=== PATIENT | female | born 1960 | race African-American/Black ===

== ENCOUNTER 2017-03-21 18:54 | Inpatient (IN) | payer OTHER ==
[~2017-03-21] VITALS: Ht 167.6 cm; Wt 50.3 kg
[2017-03-21 20:56] LABS: PLATELET COUNT 388 x10^3mcL (130-400)
[2017-03-21 21:07] LABS: ALKALINE PHOSPHATASE 53 U/L (46-116); ALT/SGPT 14 U/L (14-59); AST/SGOT 18 U/L (15-37); BILIRUBIN TOTAL 0.6 mg/dL (0.20-1.00); CALCIUM 9.2 mg/dL (8.5-10.1); CARBON DIOXIDE 33.3 mmol/L (21-32); CHLORIDE SERUM 89 mmol/L (98-107); CREATININE SERUM 0.9 mg/dL (0.6-1.0); GFR1 > 60 mL/min; GLUCOSE SERUM 111 mg/dL (74-106); SODIUM SERUM 129 mmol/L (136-145)
[2017-03-21 21:11] LABS: ALBUMIN 3.2 g/dL (3.4-5.0)
[2017-03-21 21:15] LABS: RED CELL DISTRIBUTION WIDTH 15.3 % (11.5-14.5)
[2017-03-21 21:24] LABS: CK-MB 1.6 ng/mL (0-3.6)
[2017-03-21 21:28] LABS: BAND NEUTROPHIL 0 % (0-10); BASOPHIL 0 % (0-2); MONOCYTE 6 % (0-7); SEGMENTED NEUTROPHILS 64 % (37-75)
[2017-03-21 21:29] LABS: rbc morphology (normal/abnorm) NORMAL (NORMAL)
[2017-03-21 22:08] LABS: POTASSIUM SERUM 2.9 mmol/L (3.5-5.1)
[2017-03-21 23:08] LABS: microscopic required? YES; urine erythrocyte TRACE (NEGATIVE)
[2017-03-21 23:38] VITALS: BP 105/65
[2017-03-22 00:23] LABS: CHOLESTEROL/HDL RATIO 4.7; MAGNESIUM 2.3 mg/dL (1.8-2.4); PHOSPHOROUS 3.9 mg/dL (2.5-4.9)
[2017-03-22 00:24] LABS: T3 TOTAL 0.81 ng/mL
[2017-03-22 00:30] LABS: FREE T4 1.33 ng/dL (0.76-1.46); FREE THYROXINE INDEX 3.4 ug/dL (1.4-4.5); T4(THYROXINE) 10.1 ug/dL (4.7-13.3)
[2017-03-22 05:15] VITALS: BP 103/70
[2017-03-22 06:38] LABS: CALCIUM 8.3 mg/dL (8.5-10.1); CHLORIDE SERUM 96 mmol/L (98-107); CREATININE SERUM 0.8 mg/dL (0.6-1.0); GFR1 > 60 mL/min; GLUCOSE SERUM 84 mg/dL (74-106); MAGNESIUM 2.1 mg/dL (1.8-2.4); POTASSIUM SERUM 3.8 mmol/L (3.5-5.1); SODIUM SERUM 132 mmol/L (136-145); URIC ACID 4.1 mg/dL (2.6-6.0)
[2017-03-22 06:58] LABS: PLATELET COUNT 360 x10^3mcL (130-400)
[2017-03-22 07:06] LABS: RED CELL DISTRIBUTION WIDTH 15.4 % (11.5-14.5)
[2017-03-22 10:39] VITALS: BP 102/64
[2017-03-22 11:30] LABS: BAND NEUTROPHIL 1 % (0-10); BASOPHIL 0 % (0-2); MONOCYTE 4 % (0-7); PLATELET MORPHOLOGY PLATELETS NORMAL; SEGMENTED NEUTROPHILS 57 % (37-75); rbc morphology (normal/abnorm) ABNORMAL (NORMAL); target cell (codocyte) 1+
[2017-03-22 14:00] VITALS: BP 106/65
[2017-03-22 15:31] LABS: AMPHETAMINE QUAL UR NONE DETECTED (NEG <=1000)
[2017-03-22 18:19] VITALS: BP 112/70
[2017-03-22 22:12] VITALS: BP 117/72
[2017-03-23 06:12] VITALS: BP 128/83
[2017-03-23 06:32] LABS: CALCIUM 8.5 mg/dL (8.5-10.1); CARBON DIOXIDE 27.1 mmol/L (21-32); CHLORIDE SERUM 99 mmol/L (98-107); CREATININE SERUM 0.8 mg/dL (0.6-1.0); GFR1 > 60 mL/min; GLUCOSE SERUM 100 mg/dL (74-106); SODIUM SERUM 132 mmol/L (136-145)
[2017-03-23 10:10] VITALS: BP 90/62
[2017-03-23] MEDS ORDERED: LEXAPRO10 MG PO (14:04)
[2017-03-23] MEDS ORDERED: LORAZEPAM0.5 MG PO (14:06)
[2017-03-23] MEDS ORDERED: REGLAN5 M1 PO (14:21)
[2017-03-23 14:45] VITALS: BP 90/62
[2017-03-23] MEDS ORDERED: MAC100 PO (15:23)
[2017-03-23] MEDS ORDERED: PROBIOTIC1 EAC1 PO (15:23)
== END 2017-03-23 16:14 | disposition home or self-care (01) | DRG 422 ==
LOC: ED 18:54 → DU 22:47 → MU 03-23 09:44
PROVIDERS: Emergency Medicine; Family Medicine; ADMIT Family Medicine
DX: E86.0 Dehydration (principal); N17.0 Acute kidney failure with tubular necrosis; E43 Unspecified severe protein-calorie malnutrition; E87.1 Hypo-osmolality and hyponatremia; E87.6 Hypokalemia; I10 Essential (primary) hypertension; M62.50 Muscle wasting and atrophy, not elsewhere classified, unspecified site; D57.3 Sickle-cell trait; F41.1 Generalized anxiety disorder; E78.5 Hyperlipidemia, unspecified; E03.9 Hypothyroidism, unspecified; F32.9 Major depressive disorder, single episode, unspecified; Z68.1 Body mass index [BMI] 19.9 or less, adult
CPT/HCPCS: 82962; 83880; 84439; 97530-GP; J0696; J1885; J2270; J2405; J2765; J3480; J7030; J7040; J8597; Q0092

== ENCOUNTER 2017-03-26 20:09 | Inpatient (IN) | payer OTHER ==
[~2017-03-26] VITALS: Ht 170.2 cm; Wt 53.7 kg
[~2017-03-26 20:09] MED LIST: LEXAPRO10 MG PO; LORAZEPAM0.5 MG PO; MAC100 PO; PROBIOTIC1 EAC1 PO; REGLAN5 M1 PO
--- NOTE | 2017-03-26 20:52 | NUR ---
PT PRESENTS TO ED WITH C/C ABD PAIN AND CP X 2 WEEKS. PT STATES THAT SHE HAS EPIGASTRIC PAIN 07/05 AND "KNOTTING" IN QUALITY PT RPEROTS OVER 20 EPISODES OF EMESIS , REPROTS NAUSEA, DENIES DIARRHEA, AND REPROTS CONSITPATION X 2 WEEKS. PT STATES THAT SHE IS UNABLE TO HOLD ANYTHING INCLUDING WATER DOWN. PT RPEROTS THAT SHE HAS BEEN HAVING SYNCOPAL EPISODES THE LAST EPISODE BEING ON TUESDAY. PT DENIES ANY DIZZINESS AT THIS CURRENT TIME BUT STATES SHE IS DIZZY IF SHE STANDS UP OR WALKS. PT ALSO REPROTS STERNAL C0 04/04 SINCE [address] [place] IN QUALITY RADIATES TO BOTH SIDES OF THE JAW.PT REPROTS FEELING PALPITATIONS. PT DENIES SOB. PT STABLE. AA&0X4. RESP E/U AND SPEAKING IN FULL CELAR SENTENCES. NAD. WILL CONTINUE TO MONITOR.
[2017-03-26 21:19] LABS: CALCIUM 9.2 mg/dL (8.5-10.1); CARBON DIOXIDE 32.5 mmol/L (21-32); CREATININE SERUM 1.1 mg/dL (0.6-1.0); POTASSIUM SERUM 4.1 mmol/L (3.5-5.1)
[2017-03-26 21:21] LABS: ALBUMIN 3.3 g/dL (3.4-5.0); BILIRUBIN TOTAL 0.77 mg/dL (0.20-1.00); TOTAL PROTEIN, SERUM 6.7 g/dL (6.4-8.2)
[2017-03-26 21:30] LABS: PLATELET COUNT 376 x10^3mcL (130-400)
[2017-03-26 21:33] LABS: RED CELL DISTRIBUTION WIDTH 15.5 % (11.5-14.5)
[2017-03-26 22:21] LABS: BAND NEUTROPHIL 1 % (0-10); SEGMENTED NEUTROPHILS 72 % (37-75)
[2017-03-26 22:22] LABS: MONOCYTE 4 % (0-7); PLATELET MORPHOLOGY PLATELETS NORMAL
[2017-03-26 22:23] LABS: rbc morphology (normal/abnorm) NORMAL (NORMAL)
--- NOTE | 2017-03-26 22:46 | NUR ---
PT AMBULATED TO BATHROOM WITH STEADY GAIT.
--- NOTE | 2017-03-26 22:54 | NUR ---
PT REPROTS PAIN IS NOW 0/10 AFTER BEING MEDICATED PER MD ORDERS.
--- NOTE | 2017-03-27 01:39 | NUR ---
SAW ON THE MONITOR THAT PT WAS HYPOTENSIVE. ENTERED PT ROOM TO RECHECK VITALS. FOUND PT OUT OF BED AND SITTING IN CHAIR. PT STATES THAT SHE WAS FEELING ANXIOUS IN BED AND FELT BETTER IN THE CHAIR. RECHECKED BP, STILL HYPOTENSIVE. ASSISTED PT BACK INTO BED LAYING DOWN AND RECHECKED BP AND BP RETURNED TO NORMAL. SEE DOCUMENTED VITALS. MD MADE AWARE OF HYPOTENSION. PT DENIES ANY DIZZIESS. PT STABLE. NAD. CALL LIGHT IWHIN REACH. WILL CONTINUE TO MONITOR.
[2017-03-27] MEDS ORDERED: ESCITALOPRAM10 M1 PO (02:15)
[2017-03-27 03:06] LABS: MAGNESIUM 2.3 mg/dL (1.8-2.4); PHOSPHOROUS 4.3 mg/dL (2.5-4.9)
[2017-03-27 03:07] LABS: CHOLESTEROL/HDL RATIO 4.8
[2017-03-27 03:33] LABS: UA SPECIFIC GRAVITY 1.015 (1.005-1.035); microscopic required? YES; urine erythrocyte TRACE (NEGATIVE)
[2017-03-27 03:39] LABS: AMPHETAMINE QUAL UR NONE DETECTED (NEG <=1000)
[2017-03-27 03:43] LABS: T3 TOTAL 0.61 ng/mL
[2017-03-27 03:46] LABS: FREE T4 1.35 ng/dL (0.76-1.46); FREE THYROXINE INDEX 3.7 ug/dL (1.4-4.5); T4(THYROXINE) 10.2 ug/dL (4.7-13.3)
--- NOTE | 2017-03-27 03:52 | NUR ---
CALLED DR CANTU. PT REQUESTED TO HAVE ATIVAN ORDER CHANGED TO XANAX. PT STATES THAT ATIVAN MAKES HER SICK AND CAUSES HER TO VOMIT. MADE AWARE.
--- NOTE | 2017-03-27 03:53 | NUR ---
PT STABLE. LAYING IN L LATERAL POSITION. RESP E/U. CHEST RISE AND FALL VISIBLE. PT SLEEPING AT THIS CURRENT TIME. PT STABLE. NAD. CALL LIGHT WITHIN REACH [facility].
--- NOTE | 2017-03-27 05:53 | NUR ---
PT STILL SLEEPING CHEST RISE AND FALL VISIBLE. PT STABLE. NAD. WILL CONTINUE TO MONTIOR.
--- NOTE | 2017-03-27 07:15 | NUR ---
GAVE REPROT TO GUADALUPE LOWERYT O MAC CAR EOF PT.
--- NOTE | 2017-03-27 07:30 | NUR ---
PT ASSISTED TO RESTROOM AND AMBULATED BACK WITH STEADY GAIT TO TREATMENT AREA, PT IN A POSITION OF COMFORT WITH HOB ELEVATED PER REQUEST, PT REPORTS PAIN LOWERED TO 5/10 AT THIS TIME, PT TEXTING ON PERSONAL CELL PHONE, IVF CURRENTLY INFUSING AT THIS TIME, RESP EVEN AND UNLABORED, PT IN NO ACUTE DISTRESS, CALL LIGHT WITHIN REACH, WILL CONTINUE TO MONITOR
--- NOTE | 2017-03-27 07:39 | NUR ---
LAB AT BEDSIDE FOR BLOOD DRAW AT THIS TIME
--- NOTE | 2017-03-27 07:49 | NUR ---
REPORT GIVEN TO BEVERLEY MONROE TELE FLOOR TO ASSUME CARE OF PT AFTER TRANSPORT
--- NOTE | 2017-03-27 08:11 | NUR ---
PT EVALUATED BY DR. WALKER
[2017-03-27 09:49] VITALS: BP 114/69
--- NOTE | 2017-03-27 10:00 | NUR ---
RECIEVED PT FROM ED VIA GURNEY. ALERT AND ORIENTED, NO DISTRESS NOTED. TELE #41,NSR WITH BBB AND PVC'S, HR 70. PULSES ARE STRONG AND EQUAL. LUNG SOUNDS ARE CLEAR BILATERALLY. BOWEL SOUNDS ARE ACTIVE, REPORTED PAIN TO PALPATION, REPORTED SHE HAS NOT EATEN SINCE LAST WEEK, NAUSEA IS INTERMITTENT, NO NAUSEA AT THIS TIME. SKIN DRY AND INTACT. REPORTED A FALL LAST SATURDAY 03/24 DUE TO DIZZINES. PT REPORTED EPIGASTRIC PAIN 04/04 NAD HAS HAD PAIN FOR LAST 3 MONTHS CONSISTANTLY. IV CLEAR AND INTACT. PT REPORTED SUICIDE ATTEMPT 03/26/17, ATTEMPTED TO RUN INTO TRAFFIC BUT SON STOPPED HER, SHE HAS NO PLAN FOR SUICIDE AT THIS TIME.
--- NOTE | 2017-03-27 11:56 | NUR ---
LTD 2-D ECHOCARDIOGRAM COMPLETED
--- NOTE | 2017-03-27 12:00 | NUR ---
BLOOD GLUCOSE 65, GIVEN APPLE JUICE WITH SUGAR PACKET, TOLERATED WELL.
--- NOTE | 2017-03-27 12:24 | NUR ---
SPOKE TO DR. BETHEA. INFORMED HIM OF CARDIAC RYTHM NSR HAS BBB AND PVC'S, POSITIVE UA FOR LEUKOCYTES, BLOOD SUGAR OF 65 AND POSSIBLY SWITCHING TO D5NS WHILE NPO. ALSO INFORMED OF ATTEMPTED SUICIDE ON 03/26/17.
[2017-03-27 13:31] VITALS: BP 110/75
--- NOTE | 2017-03-27 13:35 | NUR ---
REPEAT BLOOD SUGAR 70. INITIATED D5NS AT 100ML/HR PER DR ORDER. PATIENT NAUSEAS, ZOFRAN GIVEN. WILL CONT TO MONITOR.
--- NOTE | 2017-03-27 14:38 | NUR ---
PER TOUCH UP CARVER, TELE BOX REPLACED TO #40. NOTED.
--- NOTE | 2017-03-27 16:30 | NUR ---
PT REPORTED PAIN 8/10 IN ABDOMEN, GIVEN IVP MORPHINE.
[2017-03-27 17:18] VITALS: BP 122/77
--- NOTE | 2017-03-27 18:45 | NUR ---
RENATO DUQUE CAME BY, PER DOCTOR PT MEETS CRITERIA FOR 5150 DANGER TO SELF. CHARGE NURSE MADE AWARE, SITTER AT BED SIDE. PT RESTING WITH EYES CLOSED NO SIGN OF DISTRESS. NO SIGNIFICANT CHANGE IN CONDITION. WILL CONTINUE TO MONITOR AND ENDORE TO NIGHT NURSE.
--- NOTE | 2017-03-27 20:10 | NUR ---
PT ALERT AND AWAKE. AOX4. VERBAL WITH CLEAR SPEECH. SITTER AT BEDSIDE. NO S/S OF RESPIRATORY DISTRESS NOTED. LUNGS CLEAR BILATERALLY. DENIES ANY CHEST PAIN. ON TELE 40, SR WITH PAC'S. BOWEL SOUNDS PRESENT. ABD SOFT AND FLAT. SKIN WARM AND DRY. IV NS INFUSING WELL TO LEFT AC. IV PATENT AND INTACT. NO S/S OF INFECTION NOTED. NO EDEMA NOTED. PULSES PALPABLE. SCDS IN PLACE. PT STATES 5/10 EPIGASTRIC PAIN. PT C/O FEELING ANXIOUS. DENIES ANY SUICIDAL IDEATION AT THIS TIME. PRN XANAX 0.25 MG PO GIVEN. CALL LIGHT WITHIN REACH. WILL CONTINUE TO MONITOR.
[2017-03-27 21:30] VITALS: BP 101/63
[2017-03-27 22:34] VITALS: Ht 170.2 cm; Wt 53.7 kg
--- NOTE | 2017-03-28 00:16 | NUR ---
PT RESTING IN BED WITH EYES CLOSED. BREATHING EQUAL AND UNLABORED. NO S/S OF RESPIRATORY DISTRESS NOTED. IV PATENT AND INFUSING WELL. NO S/S OF DISTRESS NOTED. RESTING WITH RELAXED FACIAL FEATURES. SITTER REMAINS AT BEDSIDE. CALL LIGHT WITHIN REACH. WILL CONTINUE TO MONITOR.
--- NOTE | 2017-03-28 03:20 | NUR ---
DR. CANTU UPDATED AND AWARE OF PT'S LOW NA 130 AND UA POSITIVE FOR MANY BACTERIA. AWAITING NEW ORDERS.
--- NOTE | 2017-03-28 05:28 | NUR ---
PT SLEPT WELL THROUGH THE NIGHT. CURRENTLY ALERT AND AWAKE. PRN XANAX 0.25 MG GIVEN FOR ANXIETY. NO S/S OF RESPIRATORY DISTRESS NOTED. BREATHING EQUAL AND UNLABORED. REMAINS NPO FOR EGD PROCEDURE. IV PATENT AND INFUSING WELL. NO ADVERSE REACTIONS NOTED FROM IV ROCEPHIN. NO S/S OF DISTRESS NOTED. CALL LIGHT WITHIN REACH. SITTER AT BEDSIDE. WILL CONTINUE MONITOR.
[2017-03-28 05:47] VITALS: BP 94/60
--- NOTE | 2017-03-28 06:40 | NUR ---
TELE MONITOR DISCONTINUED PER MD ORDER; RETURNED TO INDUSTRIAL DESIGN INTERN.
--- NOTE | 2017-03-28 08:30 | NUR ---
SEEN BY THE INTERNS AND RESIDENT AND PLAN FO CARE DISCUSSED.
--- NOTE | 2017-03-28 08:39 | NUR ---
PATIENT FOR EGD THIS AM. NOTED SEVERAL MEDICATIONS GIVEN INCLUDING SYNTHROID, XANAX, AND NORCO. PATIENT COMPLETED THE CHECKLIST OF VITALS, HEIGHT, WEIGHT, CONTACT, TEACHING AND BLOOD SUGAR ADDED. PATIENT WAS SEEN BY THE INTERNS AND RESIDENT AND PLAN OF CARE DISCUSSED. JOANIE AQUINOT DIMINISHED BREATHS SOUNDS AND WITH HER UNDERWEAR, EARRINGS AND A NECKLACE ON AND ASKED TO REMOVE FOR THE PROCEDURE AND WHY. PATIENT IS COMPLIANT AND PATIENT HAD REPORT GIVEN BY THE LOGGER AND DOWN FOR PROCEDURE AT THIS TIME. PATIENT WITH BOWEL SOUNDS ACTIVE AND IS VERY LEAN. PATIENT WITH SITTER AT BEDSIDE AT THIS TIME DUE TO 5150 DUE TO THREATENED TO KILL SELF. PATIENT IS AMBULATORY AND WITH PAIN TO THE BACK AND NOT ABLE TO TOLERATE FOOD AND DRINK OR MAINTAIN WEIGHT. PULSES PALPABLE AND STRONG. PATIENT HAS HISTORY OF CARRYING THE SICKLE CELL TRAIT AND WITH ANXIETY. AND TUBAL LIQATION. PATIENT HAD NAUSEA AND VOMTIING THAT BROUGHT HER TO THE EMERGENCY WITH EPIGASTRIC PAIN TIMES TWO WEEKS. PATIENT AHS RECEIVED ROCEPHIN AND ZOFRAN AND DOES NOT APPEAR IN ANY PAIN AT TIME OF TRANSFER. AWAITING ARRIVAL BACK TO THE FLOOR POST PROCEDURE. VITALS AT THIS TIME AT 94/60, 16, 68, 96.9, 98% ON ROOM AIR. NOTED LABS ARE NA AT 130, CHLORIDE AT 91, BUN AT 20.0, CRATIINES AT 1.1, PHEON AT 4.[address] SHOWS TRACE PERICARDIO EFFUSION AND A LEASON TO THE RIGHT HEPATIC LOBE.
--- NOTE | 2017-03-28 09:52 | NUR ---
RECEIVED POST PROCEDURE AND PATIENT HAS ESOPHAGITIS AND GASTRITITIS BOTH ERROSIVE. PATIENT IS REQUESTING FOOD. NO ORDERS YET NOTED. PATIENT TOLERATED TRANSFER WELL.
[2017-03-28 09:55] VITALS: BP 77/44
--- NOTE | 2017-03-28 10:22 | NUR ---
Consent for records retreaved. staff faxed and awaiting results to be sent.
--- NOTE | 2017-03-28 10:24 | NUR ---
PATEITN REQUEING FOOD AND FLUIDS. NO ORDERS YET RECEIVED.
--- NOTE | 2017-03-28 12:04 | NUR ---
LASER ENGRAVER ADVISED THE PATIENT WANTS TO SPEAK WITH HIM. ADVISED TIMES THREE ON THE FINDINGS OF THE EGD. PATIENT GIVEN MEDICATIONS ORDERED AND DIET TO BE ORDERED. PATIENT DENIES ANY ACUTE PAIN AT THIS TIME.
--- NOTE | 2017-03-28 14:02 | NUR ---
PLAN FOR US OF THE ABDOMEN LATER TODAY AT 8PM. PATIENT IS NPO AFTER LUNCH NOWL. GAVE THE PRILOSEC AND THE REGLAN ORDERED. PATIENT STATES STILL WITH SOME PAIN BUT NOT INTENSE PRIOR. WILL CONTINUE TO MONITOR AND SITTER AT BEDSIDE FOR 5150 DIAGNOSIS. DENIES WANTING TO KILL SELF AT THIS TIME. FOR PSYCH EVAL TODAY.
--- NOTE | 2017-03-28 16:29 | NUR ---
GLENDA TO BE SEEN BY THE PSYCH DOCOTOR FOR HX OF DEPRESSION AND SUICIDAL IDEATION. PATIENT HAS A SITTER AT BEDSIDE AND HAS BEEN COOPEATIVE WITH CARE.
--- NOTE | 2017-03-28 17:42 | NUR ---
SEEN BY THE PSYCHOLOGIST AND STILL WITH 5150. PATIENT HAS BEEN PLEASANT AND COOPERATIVE WITH CARE. SHE HAS NOT INDICATED ANY IDEATION TO THE NURING STAFF BUT HAS INDICATED TO THE PSYCHOLOGIST. CONTINUED PRESENT PLAN OF CARE.
--- NOTE | 2017-03-28 19:40 | NUR ---
PT ALERT/ORIENTED X4. PT ON 7481. SITTER IN ROOM. PT EXPRESSING SUICIDIAL IDEATIONS; STATED SHE WANTED TO TAKE "PILLS" AND ALSO STATED WANTED TO "RUN OUT IN FRONT OF A TRUCK". PT ASSESSED; SEE NSG FLOWSHEET. SAFETY REINFORCED; SEE EDUCAT SHEET. WILL CONTINUE TO MONITOR. PT C/O ABD PAIN, WILL MEDICATE PER MD PRN ORDER. PT ALSO C/O NAUSEA; WILL MEDICATE WITH ZOFRAN.
[2017-03-28 19:46] VITALS: BP 99/56
--- NOTE | 2017-03-28 21:45 | NUR ---
PT NO C/O ABD OR NAUSEA AT THIS TIME. PT WAS MEDICATED WITH NORCO AT 1958 (SEE EMAR). PT WAS ALSO MEDICATED WITH ZOFRAN AT 2003. (SEE EMAR). WILL CONTINUE TO MONITOR.
--- NOTE | 2017-03-29 00:21 | NUR ---
PT SLEEPING. NO DISTRESS NOTED. WILL CONTINUE TO MONITOR.
--- NOTE | 2017-03-29 03:00 | NUR ---
PT SLEEPING. NO DISTRESS NOTED. WILL CONTINUE TO MONITOR.
--- NOTE | 2017-03-29 05:29 | NUR ---
PT SLEPT IN LONG INTERVALS THROUGHOUT THE NIGHT. WILL CONTINUE TO MONITOR.
[2017-03-29 06:05] VITALS: BP 105/62
--- NOTE | 2017-03-29 06:30 | NUR ---
NOTIFIED PRIMARY MURSE THAT Pt WAS REQUESTING TO SHOWER. Pt MADE AWARE THAT A DOCTOR'S ORDER WAS NEEDED. THE PATIENT ENTERED THE RESTROOM AND SHOWERED ANYWAY, TOLERATING WELL. BACK TO BED, WILL CONTINUE TO MONITOR.
[2017-03-29 06:41] LABS: CALCIUM 7.6 mg/dL (8.5-10.1); CARBON DIOXIDE 24.5 mmol/L (21-32); CHLORIDE SERUM 103 mmol/L (98-107); CREATININE SERUM 0.8 mg/dL (0.6-1.0); GFR1 > 60 mL/min; GLUCOSE SERUM 101 mg/dL (74-106); POTASSIUM SERUM 3.3 mmol/L (3.5-5.1); SODIUM SERUM 135 mmol/L (136-145)
[2017-03-29 07:04] LABS: BASOPHIL % 0.1 % (0-2); PLATELET COUNT 340 x10^3mcL (130-400)
[2017-03-29 07:08] LABS: RED CELL DISTRIBUTION WIDTH 16.1 % (11.5-14.5)
--- NOTE | 2017-03-29 07:15 | NUR ---
RECEIVED PT. IN BED A/A/O X3. PT. STILL C/O ON AND OFF FEELING OF NAUSEA. PT. DENIES ANY PAIN AT THIS TIME. D5NS RUNNING AT 100 CC/HR. VIA IV H/L AT R FA. SCD TO BLE MAINTAINED. DIRECTOR OF PHILANTHROPY AT BEDSIDE TO MAINTAIN PT. SAFETY. BED IN LOW POS., CALL LIGHT WITHIN REACH. SIDE RAILS UP X3.
--- NOTE | 2017-03-29 07:50 | NUR ---
C/O FEELING NAUSEATED; ZOFRAN 4MG IV GIVEN.
[2017-03-29 08:05] VITALS: BP 99/64
--- NOTE | 2017-03-29 08:07 | NUR ---
DR. BRUNSON, DO INTERNS, CHARGE NURSE, AND ATTENDING NURSE AT BEDSIDE. CAREPLAN DISCUSSED WITH PT. ALL QUESTIONS ANSWERED.
--- NOTE | 2017-03-29 10:00 | NUR ---
DR. BETHEA (DO BIOLOGICAL AIDE) WAS MADE AWARE THAT PT. REFUSED SOME PO MEDICATIONS TODAY (PLEASE SEE E-MAR). NO FURTHER ORDER RECEIVED AT THIS TIME.
--- NOTE | 2017-03-29 10:40 | NUR ---
C/O FEELING ANXIOUS; XANAX 0.25MG PO GIVEN.
[2017-03-29] MEDS ORDERED: LIPI20 PO ×2 (13:24→14:43)
[2017-03-29] MEDS ORDERED: COL100 PO ×2 (13:27→14:43)
[2017-03-29] MEDS ORDERED: REG5 PO ×2 (13:30→14:43)
[2017-03-29] MEDS ORDERED: SYN25 PO ×2 (13:32→14:46)
[2017-03-29] MEDS ORDERED: MAC100 PO ×2 (13:33→14:43)
[2017-03-29] MEDS ORDERED: LAC PO ×2 (13:34→14:43)
[2017-03-29] MEDS ORDERED: PRI20 PO ×2 (13:35→14:43)
[2017-03-29 17:40] VITALS: BP 105/67
--- NOTE | 2017-03-29 18:00 | NUR ---
D/C HOME INSTRUCTIONS GIVEN TO PT. WITH VERBALIZED UNDERSTANDING. IV H/L TO R FA REMOVED. ALL QUESTIONS ADDRESSED.
--- NOTE | 2017-03-29 18:25 | NUR ---
PT. IS BEING DISCHARGED IN STABLE CONDITION VIA WHEELCHAIR. ALL BELONGINGS SENT HOME WITH PT. UPON DISCHARGE.
== END 2017-03-29 18:22 | disposition home or self-care (01) | DRG 243 ==
LOC: ED 20:09 → DU 03-27 02:15 → MU 03-27 02:15 → DU 03-27 02:15 → MU 03-28 06:20
PROVIDERS: Emergency Medicine; Internal Medicine Gastroenterology; ADMIT Family Medicine
PROC: 0DB78ZX Excision of Stomach, Pylorus, Via Natural or Artificial Opening Endoscopic, Diagnostic (ICD-10-PCS; principal; 2017-03-28 09:00)
DX: K22.10 Ulcer of esophagus without bleeding (principal); N17.0 Acute kidney failure with tubular necrosis; E44.0 Moderate protein-calorie malnutrition; I31.3 Pericardial effusion (noninflammatory); K29.71 Gastritis, unspecified, with bleeding; E83.51 Hypocalcemia; E87.1 Hypo-osmolality and hyponatremia; E86.0 Dehydration; E87.6 Hypokalemia; F32.9 Major depressive disorder, single episode, unspecified; D57.3 Sickle-cell trait; E78.5 Hyperlipidemia, unspecified; M62.50 Muscle wasting and atrophy, not elsewhere classified, unspecified site; R31.9 Hematuria, unspecified; N39.0 Urinary tract infection, site not specified; I11.9 Hypertensive heart disease without heart failure; E02 Subclinical iodine-deficiency hypothyroidism; F45.9 Somatoform disorder, unspecified; Z68.1 Body mass index [BMI] 19.9 or less, adult; T50.905A Adverse effect of unspecified drugs, medicaments and biological substances, initial encounter; Y92.018 Other place in single-family (private) house as the place of occurrence of the external cause
CPT/HCPCS: 43235; 82962; 83880; 84439; J0696; J1200; J1610; J2250; J2270; J2310; J2405; J3010; J3490; J7030; J7042; J8597; Q0092; Q9967

== ENCOUNTER 2017-03-31 23:50 | Emergency (ER) | payer OTHER ==
[~2017-03-31 23:50] MED LIST changes: +COL100 PO; +ESCITALOPRAM10 M1 PO; +LAC PO; +LIPI20 PO; +PRI20 PO; +REG5 PO; +SYN25 PO
[2017-04-01 00:13] VITALS: BP 95/70
== END 2017-04-01 03:50 | disposition left against medical advice (07) ==
LOC: ED 23:50
DX: Z53.21 Procedure and treatment not carried out due to patient leaving prior to being seen by health care provider (principal)

== ENCOUNTER 2017-04-02 20:46 | Emergency (ER) | payer OTHER ==
[~2017-04-02] VITALS: Ht 170.2 cm; Wt 53.5 kg
[2017-04-02 22:38] VITALS: BP 117/57
== END 2017-04-02 22:38 | disposition home or self-care (01) ==
LOC: ED 20:46
DX: R60.0 Localized edema (principal); R63.0 Anorexia; M54.5 Low back pain; Z88.5 Allergy status to narcotic agent

== ENCOUNTER 2017-04-04 20:27 | Emergency (ER) | payer OTHER ==
[2017-04-05 00:10] VITALS: BP 131/90
== END 2017-04-05 02:06 | disposition home or self-care (01) ==
LOC: ED 20:27
DX: R60.0 Localized edema (principal)
CPT/HCPCS: Q0092; Q0162

== ENCOUNTER 2017-04-09 16:56 | Emergency (ER) | payer OTHER ==
[2017-04-09] MEDS ORDERED: PROMETHAZINE25 M3 PO (17:46)
[2017-04-09 18:49] VITALS: BP 123/84
== END 2017-04-09 18:49 | disposition left against medical advice (07) ==
LOC: ED 16:56
DX: R10.13 Epigastric pain (principal); Z88.5 Allergy status to narcotic agent
CPT/HCPCS: Q0162

== ENCOUNTER 2017-05-07 09:16 | Emergency (ER) | payer OTHER ==
[~2017-05-07] VITALS: Ht 170.2 cm; Wt 63.3 kg
[~2017-05-07 09:16] MED LIST changes: +PROMETHAZINE25 M3 PO
[2017-05-07 09:21] VITALS: BP 95/64
== END 2017-05-07 09:55 | disposition home or self-care (01) ==
LOC: ED 09:16
DX: R60.0 Localized edema (principal); Z88.5 Allergy status to narcotic agent; Z88.8 Allergy status to other drugs, medicaments and biological substances

== ENCOUNTER 2017-05-26 06:50 | Emergency (ER) | payer OTHER ==
[2017-05-26 08:30] LABS: CALCIUM 9.4 mg/dL (8.5-10.1); CHLORIDE SERUM 96 mmol/L (98-107); CREATININE SERUM 0.8 mg/dL (0.6-1.0); GFR1 > 60 mL/min; GLUCOSE SERUM 100 mg/dL (74-106); POTASSIUM SERUM 4.5 mmol/L (3.5-5.1); RED CELL DISTRIBUTION WIDTH 16.8 % (11.5-14.5); SODIUM SERUM 130 mmol/L (136-145)
[2017-05-26 08:31] LABS: PLATELET COUNT 508 x10^3mcL (130-400)
[2017-05-26 08:34] LABS: ALBUMIN 3.5 g/dL (3.4-5.0); ALKALINE PHOSPHATASE 47 U/L (46-116); ALT/SGPT 15 U/L (14-59); AST/SGOT 12 U/L (15-37); BILIRUBIN TOTAL 0.6 mg/dL (0.20-1.00); LIPASE 97 IU/L (73-393); TOTAL PROTEIN, SERUM 7.6 g/dL (6.4-8.2)
[2017-05-26 10:14] VITALS: BP 139/38
== END 2017-05-26 10:14 | disposition home or self-care (01) ==
LOC: ED 06:50
PROVIDERS: Emergency Medicine
DX: K59.00 Constipation, unspecified (principal); Z88.5 Allergy status to narcotic agent; Z88.6 Allergy status to analgesic agent
CPT/HCPCS: J2405; J3010

== ENCOUNTER 2017-08-17 10:02 | Emergency (ER) | payer OTHER ==
[~2017-08-17] VITALS: Ht 170.2 cm; Wt 53.5 kg
[2017-08-17 10:47] LABS: PLATELET COUNT 353 x10^3mcL (130-400)
[2017-08-17 10:56] LABS: RED CELL DISTRIBUTION WIDTH 15.6 % (11.5-14.5)
[2017-08-17 11:11] LABS: ALKALINE PHOSPHATASE 58 U/L (46-116); ALT/SGPT 13 U/L (14-59); AST/SGOT 15 U/L (15-37); BILIRUBIN TOTAL 0.3 mg/dL (0.20-1.00); CARBON DIOXIDE 31.4 mmol/L (21-32); CHLORIDE SERUM 101 mmol/L (98-107); CREATININE SERUM 0.7 mg/dL (0.6-1.0); GFR1 > 60 mL/min; GLUCOSE SERUM 129 mg/dL (74-106); LIPASE 65 IU/L (73-393); POTASSIUM SERUM 3.9 mmol/L (3.5-5.1); SODIUM SERUM 136 mmol/L (136-145); TOTAL PROTEIN, SERUM 7.4 g/dL (6.4-8.2)
[2017-08-17 11:13] LABS: ALBUMIN 2.9 g/dL (3.4-5.0)
[2017-08-17 11:32] LABS: BAND NEUTROPHIL 2 % (0-10); BASOPHIL 0 % (0-2); MONOCYTE 8 % (0-7); SEGMENTED NEUTROPHILS 79 % (37-75)
[2017-08-17 11:34] LABS: rbc morphology (normal/abnorm) ABNORMAL (NORMAL)
[2017-08-17 11:35] LABS: burr cell (echinocyte) 1+; ovalocyte/elliptocyte 1+; target cell (codocyte) 1+
[2017-08-17 11:36] LABS: schistocyte (helmet cell) 1+
[2017-08-17 11:37] LABS: CALCIUM 9.3 mg/dL (8.5-10.1)
[2017-08-17 12:24] VITALS: BP 150/90
== END 2017-08-17 12:26 | disposition home or self-care (01) ==
LOC: ED 10:02
PROVIDERS: Emergency Medicine
DX: R42 Dizziness and giddiness (principal); R10.9 Unspecified abdominal pain
CPT/HCPCS: J2405; J7030; J8597; Q0092

== ENCOUNTER 2017-08-21 09:28 | Emergency (ER) | payer OTHER ==
[2017-08-21 10:51] LABS: CALCIUM 9.4 mg/dL (8.5-10.1); CARBON DIOXIDE 31.1 mmol/L (21-32); CREATININE SERUM 1.1 mg/dL (0.6-1.0); POTASSIUM SERUM 4.6 mmol/L (3.5-5.1)
[2017-08-21 10:56] LABS: BILIRUBIN TOTAL 0.64 mg/dL (0.20-1.00); TOTAL PROTEIN, SERUM 7.6 g/dL (6.4-8.2)
[2017-08-21 10:58] LABS: ALBUMIN 3.1 g/dL (3.4-5.0)
[2017-08-21 11:00] LABS: BASOPHIL % 1.1 % (0-2); PLATELET COUNT 395 x10^3mcL (130-400)
[2017-08-21 11:04] LABS: RED CELL DISTRIBUTION WIDTH 15.2 % (11.5-14.5)
[2017-08-21 12:31] LABS: microscopic required? YES; urine erythrocyte TRACE (NEGATIVE)
[2017-08-21 12:46] LABS: AMPHETAMINE QUAL UR NONE DETECTED (NEG <=1000)
[2017-08-21 15:22] VITALS: BP 122/82
== END 2017-08-21 15:22 | disposition home or self-care (01) ==
LOC: ED 09:28
PROVIDERS: Emergency Medicine
DX: D18.09 Hemangioma of other sites (principal); R10.13 Epigastric pain; Z88.5 Allergy status to narcotic agent
CPT/HCPCS: J0696; J1885; J3490; J7030; Q9967

== ENCOUNTER 2017-09-13 13:10 | Emergency (ER) | payer OTHER ==
[~2017-09-13] VITALS: Ht 172.7 cm; Wt 53.5 kg
[2017-09-13 13:42] VITALS: Ht 172.7 cm; Wt 53.5 kg
[2017-09-13 15:24] LABS: PLATELET COUNT 336 x10^3mcL (130-400)
[2017-09-13 15:31] LABS: CALCIUM 9.1 mg/dL (8.5-10.1); CARBON DIOXIDE 29.7 mmol/L (21-32); CHLORIDE SERUM 102 mmol/L (98-107); CREATININE SERUM 0.6 mg/dL (0.6-1.0); GFR1 > 60 mL/min; GLUCOSE SERUM 110 mg/dL (74-106); POTASSIUM SERUM 3.9 mmol/L (3.5-5.1); SODIUM SERUM 140 mmol/L (136-145)
[2017-09-13 15:32] LABS: RED CELL DISTRIBUTION WIDTH 17.1 % (11.5-14.5)
[2017-09-13 15:36] LABS: ALKALINE PHOSPHATASE 53 U/L (46-116); ALT/SGPT 16 U/L (14-59); AMYLASE 46 U/L (25-115); AST/SGOT 14 U/L (15-37); BILIRUBIN TOTAL 0.3 mg/dL (0.20-1.00); LIPASE 74 IU/L (73-393); TOTAL PROTEIN, SERUM 7.3 g/dL (6.4-8.2)
[2017-09-13 15:44] LABS: BAND NEUTROPHIL 1 % (0-10); BASOPHIL 0 % (0-2); MONOCYTE 5 % (0-7); SEGMENTED NEUTROPHILS 76 % (37-75)
[2017-09-13 15:45] LABS: rbc morphology (normal/abnorm) ABNORMAL (NORMAL)
[2017-09-13 16:44] VITALS: BP 156/98
== END 2017-09-13 16:44 | disposition home or self-care (01) ==
LOC: ED 13:10
PROVIDERS: Emergency Medicine
DX: K29.70 Gastritis, unspecified, without bleeding (principal); Z88.5 Allergy status to narcotic agent
CPT/HCPCS: 83880; J0780; J1200; J1885

== ENCOUNTER 2017-10-13 10:16 | Emergency (ER) | payer OTHER ==
[~2017-10-13] VITALS: Ht 170.2 cm; Wt 52.2 kg
[2017-10-13 10:20] VITALS: Ht 170.2 cm; Wt 52.2 kg
[2017-10-13 15:50] VITALS: BP 118/74
== END 2017-10-13 15:50 | disposition home or self-care (01) ==
LOC: ED 10:16
DX: G89.29 Other chronic pain (principal); R10.9 Unspecified abdominal pain; R11.2 Nausea with vomiting, unspecified; Z88.5 Allergy status to narcotic agent
CPT/HCPCS: J1885; J2270; Q0162

== ENCOUNTER 2017-10-17 19:58 | Emergency (ER) | payer OTHER ==
[~2017-10-17] VITALS: Ht 170.2 cm; Wt 53.5 kg
[2017-10-17 20:08] VITALS: Ht 170.2 cm; Wt 53.5 kg
[2017-10-17 21:12] LABS: PLATELET COUNT 398 x10^3mcL (130-400)
[2017-10-17 21:21] LABS: RED CELL DISTRIBUTION WIDTH 16.8 % (11.5-14.5)
[2017-10-17 21:24] LABS: CALCIUM 9.2 mg/dL (8.5-10.1); CREATININE SERUM 1.3 mg/dL (0.6-1.0); POTASSIUM SERUM 3.3 mmol/L (3.5-5.1)
[2017-10-17 21:28] LABS: ALBUMIN 3.5 g/dL (3.4-5.0); BILIRUBIN TOTAL 0.8 mg/dL (0.20-1.00); MAGNESIUM 2.4 mg/dL (1.8-2.4); TOTAL PROTEIN, SERUM 7.2 g/dL (6.4-8.2)
[2017-10-17 22:03] LABS: BAND NEUTROPHIL 0 % (0-10); BASOPHIL 0 % (0-2); MONOCYTE 7 % (0-7); PLATELET MORPHOLOGY PLATELETS NORMAL; SEGMENTED NEUTROPHILS 75 % (37-75); rbc morphology (normal/abnorm) NORMAL (NORMAL)
[2017-10-18 01:05] VITALS: BP 132/90
== END 2017-10-18 01:05 | disposition home or self-care (01) ==
LOC: ED 19:58
PROVIDERS: Emergency Medicine
DX: R55 Syncope and collapse (principal); G89.29 Other chronic pain; M54.16 Radiculopathy, lumbar region; D57.3 Sickle-cell trait; R64 Cachexia; I10 Essential (primary) hypertension; Z88.5 Allergy status to narcotic agent
CPT/HCPCS: 82962; 83880; J3490; J7030; Q0092

== ENCOUNTER 2017-11-11 08:12 | Inpatient (IN) | payer OTHER ==
[~2017-11-11] VITALS: Ht 170.2 cm; Wt 49.0 kg
[2017-11-11 09:10] LABS: CHLORIDE SERUM 93 mmol/L (98-107); CREATININE SERUM 0.9 mg/dL (0.6-1.0); GFR1 > 60 mL/min; GLUCOSE SERUM 120 mg/dL (74-106); POTASSIUM SERUM 3.3 mmol/L (3.5-5.1); SODIUM SERUM 132 mmol/L (136-145)
[2017-11-11 09:16] LABS: ALBUMIN 2.8 g/dL (3.4-5.0); ALKALINE PHOSPHATASE 40 U/L (46-116); ALT/SGPT 21 U/L (14-59); AST/SGOT 18 U/L (15-37); BILIRUBIN TOTAL 0.53 mg/dL (0.20-1.00); LIPASE 59 IU/L (73-393); TOTAL PROTEIN, SERUM 6.3 g/dL (6.4-8.2)
[2017-11-11 09:31] LABS: PLATELET COUNT 376 x10^3mcL (130-400)
[2017-11-11 10:10] LABS: ATYPICAL LYMPH 1 %; BAND NEUTROPHIL 0 % (0-10); BASOPHIL 0 % (0-2); MONOCYTE 8 % (0-7); SEGMENTED NEUTROPHILS 76 % (37-75)
[2017-11-11 10:12] LABS: PLATELET MORPHOLOGY PLATELETS INCREASED; acanthocyte (spur cell) 3+; rbc morphology (normal/abnorm) ABNORMAL (NORMAL)
[2017-11-11 11:27] LABS: PHOSPHOROUS 3.4 mg/dL (2.5-4.9)
[2017-11-11 11:29] LABS: CHOLESTEROL/HDL RATIO 5.9
[2017-11-11 11:34] LABS: FREE T4 1.53 ng/dL (0.76-1.46); FREE THYROXINE INDEX 3.5 ug/dL (1.4-4.5)
[2017-11-11 11:43] VITALS: BP 112/75
[2017-11-11 11:48] LABS: T3 TOTAL 0.72 ng/mL
[2017-11-11 13:45] VITALS: BP 143/99
[2017-11-11 18:06] VITALS: BP 100/66
[2017-11-11 21:37] VITALS: BP 144/88
[2017-11-12 04:43] VITALS: BP 145/89
[2017-11-12 06:39] LABS: CALCIUM 8.1 mg/dL (8.5-10.1); CARBON DIOXIDE 28.7 mmol/L (21-32); CHLORIDE SERUM 95 mmol/L (98-107); CREATININE SERUM 0.9 mg/dL (0.6-1.0); GFR1 > 60 mL/min; GLUCOSE SERUM 81 mg/dL (74-106); POTASSIUM SERUM 3.3 mmol/L (3.5-5.1); SODIUM SERUM 134 mmol/L (136-145)
[2017-11-12 07:13] LABS: PLATELET COUNT 359 x10^3mcL (130-400)
[2017-11-12 07:17] LABS: RED CELL DISTRIBUTION WIDTH 16.4 % (11.5-14.5)
[2017-11-12 10:00] VITALS: BP 136/85
[2017-11-12 10:30] LABS: ATYPICAL LYMPH 2 %; BAND NEUTROPHIL 0 % (0-10); BASOPHIL 0 % (0-2); MONOCYTE 8 % (0-7); SEGMENTED NEUTROPHILS 73 % (37-75)
[2017-11-12 10:32] LABS: PLATELET MORPHOLOGY PLATELETS INCREASED; rbc morphology (normal/abnorm) ABNORMAL (NORMAL); target cell (codocyte) 1+
[2017-11-12 10:33] LABS: acanthocyte (spur cell) 1+; schistocyte (helmet cell) 1+
[2017-11-12 12:50] VITALS: BP 112/67
[2017-11-12 18:10] VITALS: BP 103/55
[2017-11-12 20:06] VITALS: Ht 170.2 cm; Wt 49.0 kg
[2017-11-12 23:46] VITALS: BP 102/69
[2017-11-13 04:21] VITALS: BP 142/89
[2017-11-13 06:22] LABS: PLATELET COUNT 371 x10^3mcL (130-400)
[2017-11-13 06:34] LABS: CALCIUM 8.1 mg/dL (8.5-10.1); CARBON DIOXIDE 28.4 mmol/L (21-32); CHLORIDE SERUM 96 mmol/L (98-107); CREATININE SERUM 0.8 mg/dL (0.6-1.0); GFR1 > 60 mL/min; GLUCOSE SERUM 101 mg/dL (74-106); MAGNESIUM 1.8 mg/dL (1.8-2.4); PHOSPHOROUS 2.6 mg/dL (2.5-4.9); SODIUM SERUM 135 mmol/L (136-145)
[2017-11-13 06:40] LABS: POTASSIUM SERUM 2.9 mmol/L (3.5-5.1)
[2017-11-13 07:03] LABS: RED CELL DISTRIBUTION WIDTH 16.3 % (11.5-14.5)
[2017-11-13 07:46] LABS: UA SPECIFIC GRAVITY 1.015 (1.005-1.035); microscopic required? YES; urine erythrocyte TRACE (NEGATIVE)
[2017-11-13 07:58] LABS: AMPHETAMINE QUAL UR NONE DETECTED (NEG <=1000)
[2017-11-13 08:56] VITALS: BP 123/83
[2017-11-13 10:06] LABS: BAND NEUTROPHIL 0 % (0-10); BASOPHIL 0 % (0-2); MONOCYTE 7 % (0-7); SEGMENTED NEUTROPHILS 76 % (37-75)
[2017-11-13 10:07] LABS: rbc morphology (normal/abnorm) ABNORMAL (NORMAL)
[2017-11-13 10:08] LABS: acanthocyte (spur cell) 1+; schistocyte (helmet cell) 1+; target cell (codocyte) 1+
[2017-11-13] MEDS ORDERED: ZOFI IV (14:19)
[2017-11-13 14:45] VITALS: BP 123/83
[2017-11-13 15:35] LABS: CALCIUM 8.6 mg/dL (8.5-10.1); CARBON DIOXIDE 28.3 mmol/L (21-32); CHLORIDE SERUM 95 mmol/L (98-107); CREATININE SERUM 0.8 mg/dL (0.6-1.0); GFR1 > 60 mL/min; GLUCOSE SERUM 91 mg/dL (74-106); POTASSIUM SERUM 4.1 mmol/L (3.5-5.1); SODIUM SERUM 131 mmol/L (136-145)
== END 2017-11-13 16:00 | disposition home or self-care (01) | DRG 241 ==
LOC: ED 08:12 → DU 10:37
PROVIDERS: Emergency Medicine; Family Medicine; Family Medicine Sports Medicine
DX: K29.71 Gastritis, unspecified, with bleeding (principal); N17.0 Acute kidney failure with tubular necrosis; E43 Unspecified severe protein-calorie malnutrition; E87.8 Other disorders of electrolyte and fluid balance, not elsewhere classified; E86.0 Dehydration; F33.3 Major depressive disorder, recurrent, severe with psychotic symptoms; F45.1 Undifferentiated somatoform disorder; E03.9 Hypothyroidism, unspecified; E87.6 Hypokalemia; I10 Essential (primary) hypertension; R62.7 Adult failure to thrive; D57.3 Sickle-cell trait; K20.9 Esophagitis, unspecified; E87.1 Hypo-osmolality and hyponatremia; E78.5 Hyperlipidemia, unspecified; Z53.29 Procedure and treatment not carried out because of patient's decision for other reasons; Z88.5 Allergy status to narcotic agent; Z98.51 Tubal ligation status; Z79.899 Other long term (current) drug therapy; Z68.1 Body mass index [BMI] 19.9 or less, adult
CPT/HCPCS: 83880; 84439; J1885; J2060; J2270; J2405; J3480; J3490; J7030

== ENCOUNTER 2019-01-24 18:15 | Inpatient (IN) | payer OTHER ==
[~2019-01-24] VITALS: Ht 170.2 cm; Wt 50.6 kg
[~2019-01-24 18:15] MED LIST changes: +ZOFI IV
[2019-01-24 18:47] VITALS: Ht 170.2 cm; Wt 50.6 kg
[2019-01-24 19:35] LABS: PLATELET COUNT 230 x10^3mcL (130-400)
[2019-01-24 19:39] LABS: CALCIUM 8.6 mg/dL (8.5-10.1); CARBON DIOXIDE 32.6 mmol/L (21-32); CREATININE SERUM 1.1 mg/dL (0.6-1.0); POTASSIUM SERUM 4.3 mmol/L (3.5-5.1)
[2019-01-24 19:44] LABS: BILIRUBIN TOTAL 0.3 mg/dL (0.20-1.00)
[2019-01-24 19:46] LABS: RED CELL DISTRIBUTION WIDTH 24.5 % (11.5-14.5)
[2019-01-24 19:48] LABS: ALBUMIN 2.3 g/dL (3.4-5.0); TOTAL PROTEIN, SERUM 5.9 g/dL (6.4-8.2)
[2019-01-24 20:00] LABS: MONOCYTE 6 % (0-7); SEGMENTED NEUTROPHILS 69 % (37-75)
[2019-01-24 20:03] LABS: acanthocyte (spur cell) 2+; rbc morphology (normal/abnorm) ABNORMAL (NORMAL); target cell (codocyte) 3+; tear drop cell (dacryocyte) 1+
[2019-01-24 20:04] LABS: PLATELET MORPHOLOGY FEW LARGE PLATELET
[2019-01-24] MEDS ORDERED: ZOF4 PO (20:24)
[2019-01-24] MEDS ORDERED: MECLIZINE HYDRO25 M1 PO (20:25)
[2019-01-24] MEDS ORDERED: XANAX XR2 M1 PO (20:26)
[2019-01-24 21:19] LABS: UA SPECIFIC GRAVITY 1.015 (1.005-1.035); microscopic required? YES
[2019-01-24 21:20] LABS: urine erythrocyte TRACE (NEGATIVE)
[2019-01-24 21:56] VITALS: BP 116/87
[2019-01-25 04:59] VITALS: BP 120/84
[2019-01-25 07:02] LABS: CALCIUM 8.6 mg/dL (8.5-10.1); CARBON DIOXIDE 26.9 mmol/L (21-32); CREATININE SERUM 1.1 mg/dL (0.6-1.0); POTASSIUM SERUM 4.5 mmol/L (3.5-5.1)
[2019-01-25 07:26] LABS: PLATELET COUNT 236 x10^3mcL (130-400)
[2019-01-25 08:26] LABS: RED CELL DISTRIBUTION WIDTH 25.3 % (11.5-14.5)
[2019-01-25 10:05] VITALS: BP 109/72
[2019-01-25 13:16] LABS: BAND NEUTROPHIL 1 % (0-10); MONOCYTE 7 % (0-7); SEGMENTED NEUTROPHILS 70 % (37-75)
[2019-01-25 13:17] LABS: acanthocyte (spur cell) 2+; burr cell (echinocyte) 2+; schistocyte (helmet cell) 1+; target cell (codocyte) 3+
[2019-01-25 13:18] LABS: PLATELET MORPHOLOGY PLATELETS NORMAL
[2019-01-25 13:19] LABS: rbc morphology (normal/abnorm) ABNORMAL (NORMAL)
[2019-01-25 17:15] VITALS: BP 106/75
[2019-01-25 21:29] VITALS: BP 104/71
[2019-01-26 05:58] VITALS: BP 125/84
[2019-01-26 06:15] LABS: PLATELET COUNT 269 x10^3mcL (130-400)
[2019-01-26 06:24] LABS: CALCIUM 8.3 mg/dL (8.5-10.1); CARBON DIOXIDE 25.2 mmol/L (21-32); CREATININE SERUM 1.1 mg/dL (0.6-1.0); POTASSIUM SERUM 4.4 mmol/L (3.5-5.1)
[2019-01-26 06:52] LABS: RED CELL DISTRIBUTION WIDTH 25.3 % (11.5-14.5)
[2019-01-26 08:33] VITALS: BP 103/65
[2019-01-26 11:04] LABS: BAND NEUTROPHIL 4 % (0-10); BASOPHIL 0 % (0-2); MONOCYTE 8 % (0-7); SEGMENTED NEUTROPHILS 63 % (37-75)
[2019-01-26 11:07] LABS: rbc morphology (normal/abnorm) ABNORMAL (NORMAL)
[2019-01-26 11:08] LABS: acanthocyte (spur cell) 1+; burr cell (echinocyte) 1+; schistocyte (helmet cell) 1+; target cell (codocyte) 2+
[2019-01-26 11:09] LABS: PLATELET MORPHOLOGY PLATELETS NORMAL
[2019-01-26 16:39] VITALS: BP 101/70
[2019-01-26 21:17] VITALS: BP 98/70
[2019-01-27] VITALS (7 sets, daily range): BP systolic 84–147; BP diastolic 52–96
[2019-01-27 06:22] LABS: PLATELET COUNT 255 x10^3mcL (130-400)
[2019-01-27 07:04] LABS: CALCIUM 8.4 mg/dL (8.5-10.1); CARBON DIOXIDE 23.5 mmol/L (21-32); CHLORIDE SERUM 109 mmol/L (98-107); GFR1 > 60 mL/min; GLUCOSE SERUM 136 mg/dL (74-106); SODIUM SERUM 141 mmol/L (136-145)
[2019-01-27 08:01] LABS: RED CELL DISTRIBUTION WIDTH 24.8 % (11.5-14.5)
[2019-01-27 12:40] LABS: BAND NEUTROPHIL 3 % (0-10); MONOCYTE 8 % (0-7); SEGMENTED NEUTROPHILS 65 % (37-75)
[2019-01-27 12:41] LABS: acanthocyte (spur cell) 2+; burr cell (echinocyte) 2+; rbc morphology (normal/abnorm) ABNORMAL (NORMAL); schistocyte (helmet cell) 1+
[2019-01-27 12:42] LABS: PLATELET MORPHOLOGY PLATELETS NORMAL
[2019-01-28 04:38] VITALS: BP 103/73
[2019-01-28 06:29] LABS: CARBON DIOXIDE 23.8 mmol/L (21-32); CHLORIDE SERUM 107 mmol/L (98-107); CREATININE SERUM 0.9 mg/dL (0.6-1.0); GFR1 > 60 mL/min; GLUCOSE SERUM 101 mg/dL (74-106); POTASSIUM SERUM 4.4 mmol/L (3.5-5.1); SODIUM SERUM 138 mmol/L (136-145)
[2019-01-28 09:54] VITALS: BP 95/62
[2019-01-28 11:52] LABS: PLATELET COUNT 252 x10^3mcL (130-400); RED CELL DISTRIBUTION WIDTH 25.2 % (11.5-14.5)
[2019-01-28 12:00] LABS: BAND NEUTROPHIL 4 % (0-10); MONOCYTE 7 % (0-7); SEGMENTED NEUTROPHILS 68 % (37-75)
[2019-01-28 12:01] LABS: rbc morphology (normal/abnorm) ABNORMAL (NORMAL)
[2019-01-28 12:03] LABS: acanthocyte (spur cell) 2+; burr cell (echinocyte) 2+; schistocyte (helmet cell) 1+; target cell (codocyte) 3+
[2019-01-28 12:04] LABS: PLATELET MORPHOLOGY LARGE PLATELET SEEN
[2019-01-28 13:01] VITALS: BP 108/72
[2019-01-28 16:41] VITALS: BP 119/81
[2019-01-28 19:43] VITALS: BP 100/68
[2019-01-29 04:56] VITALS: BP 111/73
[2019-01-29 06:36] LABS: PLATELET COUNT 253 x10^3mcL (130-400)
[2019-01-29 06:42] LABS: CALCIUM 7.8 mg/dL (8.5-10.1); CARBON DIOXIDE 26.2 mmol/L (21-32); CHLORIDE SERUM 106 mmol/L (98-107); CREATININE SERUM 0.9 mg/dL (0.6-1.0); GFR1 > 60 mL/min; GLUCOSE SERUM 113 mg/dL (74-106); POTASSIUM SERUM 4.3 mmol/L (3.5-5.1); SODIUM SERUM 137 mmol/L (136-145)
[2019-01-29 07:06] LABS: RED CELL DISTRIBUTION WIDTH 25.6 % (11.5-14.5)
[2019-01-29 09:01] VITALS: BP 114/75
[2019-01-29 09:08] VITALS: BP 114/75
[2019-01-29 12:08] VITALS: BP 98/63
[2019-01-29 12:08] LABS: SEGMENTED NEUTROPHILS 64 % (37-75)
[2019-01-29 12:09] LABS: BAND NEUTROPHIL 6 % (0-10); MONOCYTE 6 % (0-7); rbc morphology (normal/abnorm) ABNORMAL (NORMAL)
[2019-01-29 12:10] LABS: PLATELET MORPHOLOGY PLATELETS NORMAL; acanthocyte (spur cell) 1+; burr cell (echinocyte) 2+; schistocyte (helmet cell) 1+; target cell (codocyte) 2+
[2019-01-29 16:48] VITALS: BP 102/69
[2019-01-29 20:56] VITALS: BP 88/57
[2019-01-30 05:40] VITALS: BP 115/76
[2019-01-30 06:40] LABS: PLATELET COUNT 221 x10^3mcL (130-400)
[2019-01-30 06:49] LABS: CALCIUM 7.7 mg/dL (8.5-10.1); CARBON DIOXIDE 28.9 mmol/L (21-32); CHLORIDE SERUM 104 mmol/L (98-107); CREATININE SERUM 0.8 mg/dL (0.6-1.0); GFR1 > 60 mL/min; GLUCOSE SERUM 87 mg/dL (74-106); POTASSIUM SERUM 4.6 mmol/L (3.5-5.1); SODIUM SERUM 136 mmol/L (136-145)
[2019-01-30 07:06] LABS: RED CELL DISTRIBUTION WIDTH 25.5 % (11.5-14.5)
[2019-01-30 09:17] VITALS: BP 130/83
[2019-01-30 13:07] LABS: SEGMENTED NEUTROPHILS 60 % (37-75)
[2019-01-30 13:08] LABS: ATYPICAL LYMPH 0 %; BAND NEUTROPHIL 6 % (0-10); BASOPHIL 0 % (0-2); MONOCYTE 8 % (0-7)
[2019-01-30 13:09] LABS: PLATELET MORPHOLOGY PLATELETS DECREASED; rbc morphology (normal/abnorm) ABNORMAL (NORMAL)
[2019-01-30 13:33] VITALS: BP 98/66
[2019-01-30 17:03] VITALS: BP 109/72
[2019-01-30 20:47] VITALS: BP 95/62
[2019-01-31 05:22] VITALS: BP 125/88
[2019-01-31 08:40] VITALS: BP 117/58
[2019-01-31 11:49] VITALS: BP 94/62
[2019-01-31 17:05] VITALS: BP 90/64
[2019-01-31 21:35] VITALS: BP 106/64
[2019-02-01 06:03] VITALS: BP 123/80
[2019-02-01 08:19] VITALS: BP 123/82
[2019-02-01 12:14] VITALS: BP 93/53
[2019-02-01 16:43] VITALS: BP 96/59
[2019-02-02 05:51] VITALS: BP 107/62
[2019-02-02 06:46] LABS: CARBON DIOXIDE 32.2 mmol/L (21-32); CHLORIDE SERUM 101 mmol/L (98-107); CREATININE SERUM 0.9 mg/dL (0.6-1.0); GFR1 > 60 mL/min; GLUCOSE SERUM 81 mg/dL (74-106); POTASSIUM SERUM 5.3 mmol/L (3.5-5.1); SODIUM SERUM 136 mmol/L (136-145)
[2019-02-02 08:07] LABS: PLATELET COUNT 270 x10^3mcL (130-400); RED CELL DISTRIBUTION WIDTH 25.3 % (11.5-14.5)
[2019-02-02 09:00] VITALS: BP 104/67
[2019-02-02 11:12] LABS: BAND NEUTROPHIL 6 % (0-10); BASOPHIL 0 % (0-2); MONOCYTE 7 % (0-7); SEGMENTED NEUTROPHILS 57 % (37-75)
[2019-02-02 11:15] LABS: rbc morphology (normal/abnorm) ABNORMAL (NORMAL); target cell (codocyte) 2+
[2019-02-02 11:17] LABS: PLATELET MORPHOLOGY PLATELETS NORMAL
[2019-02-02 12:48] VITALS: BP 91/58
[2019-02-02 17:11] VITALS: BP 95/60
[2019-02-03 09:14] VITALS: BP 99/62
[2019-02-03 17:56] VITALS: BP 105/66
[2019-02-03 20:25] VITALS: BP 90/53
[2019-02-04 05:28] VITALS: BP 131/80
[2019-02-04 11:27] LABS: PLATELET COUNT 370 x10^3mcL (130-400)
[2019-02-04 11:28] LABS: RED CELL DISTRIBUTION WIDTH 24.1 % (11.5-14.5)
[2019-02-04 11:34] LABS: ALKALINE PHOSPHATASE 101 U/L (46-116); ALT/SGPT 39 U/L (14-59); AST/SGOT 52 U/L (15-37); BILIRUBIN TOTAL 0.17 mg/dL (0.20-1.00); CALCIUM 7.9 mg/dL (8.5-10.1); CARBON DIOXIDE 29.5 mmol/L (21-32); CHLORIDE SERUM 103 mmol/L (98-107); GFR1 > 60 mL/min; GLUCOSE SERUM 85 mg/dL (74-106); PHOSPHOROUS 2.3 mg/dL (2.5-4.9); POTASSIUM SERUM 4.5 mmol/L (3.5-5.1); SODIUM SERUM 138 mmol/L (136-145)
[2019-02-04 11:35] LABS: ALBUMIN 1.7 g/dL (3.4-5.0); TOTAL PROTEIN, SERUM 5.2 g/dL (6.4-8.2)
[2019-02-04 12:57] LABS: BAND NEUTROPHIL 9 % (0-10); BASOPHIL 0 % (0-2); MONOCYTE 8 % (0-7); SEGMENTED NEUTROPHILS 73 % (37-75)
[2019-02-04 12:58] LABS: rbc morphology (normal/abnorm) ABNORMAL (NORMAL)
[2019-02-04 12:59] LABS: target cell (codocyte) 1+
[2019-02-04 16:10] VITALS: BP 85/60
[2019-02-04 19:30] VITALS: BP 85/60
[2019-02-04 22:36] VITALS: BP 86/56
[2019-02-05 05:35] VITALS: BP 129/89
[2019-02-05 17:13] VITALS: BP 94/54
[2019-02-05 20:15] VITALS: BP 119/79
[2019-02-06 18:15] VITALS: BP 86/51
[2019-02-06 19:50] VITALS: BP 119/77
[2019-02-07 05:56] VITALS: BP 120/69
[2019-02-07 09:31] VITALS: BP 97/64
[2019-02-07 17:22] VITALS: BP 93/64
[2019-02-07 21:33] VITALS: BP 90/60
[2019-02-08 06:05] VITALS: BP 120/80
[2019-02-08 09:35] VITALS: BP 123/81
[2019-02-08 17:30] VITALS: BP 90/59
[2019-02-08 21:18] VITALS: BP 91/59
[2019-02-09 05:59] VITALS: BP 114/77
[2019-02-09 16:02] VITALS: BP 93/61
[2019-02-09 20:00] VITALS: BP 107/75
[2019-02-10 05:37] VITALS: BP 99/63
[2019-02-10 09:11] VITALS: BP 90/60
[2019-02-10 16:51] VITALS: BP 102/54
[2019-02-10 19:57] VITALS: BP 94/66
[2019-02-11 05:30] VITALS: BP 89/59
[2019-02-11 10:42] VITALS: BP 87/49
[2019-02-11 17:10] VITALS: BP 82/51
[2019-02-11 21:17] VITALS: BP 85/54
[2019-02-12] VITALS (7 sets, daily range): BP systolic 73–101; BP diastolic 43–66
[2019-02-13 06:33] VITALS: BP 105/65
[2019-02-13 07:37] LABS: CALCIUM 8.7 mg/dL (8.5-10.1); CREATININE SERUM 1.2 mg/dL (0.6-1.0); POTASSIUM SERUM 4.3 mmol/L (3.5-5.1)
[2019-02-13 08:15] LABS: PLATELET COUNT 804 x10^3mcL (130-400)
[2019-02-13 08:25] VITALS: BP 84/57
[2019-02-13 13:17] LABS: BAND NEUTROPHIL 11 % (0-10); BASOPHIL 0 % (0-2); MONOCYTE 3 % (0-7); PLATELET MORPHOLOGY PLATELETS INCREASED; SEGMENTED NEUTROPHILS 64 % (37-75); rbc morphology (normal/abnorm) ABNORMAL (NORMAL)
[2019-02-13 17:11] VITALS: BP 91/57
[2019-02-13 21:30] VITALS: BP 106/66
[2019-02-14 06:03] VITALS: BP 105/69
[2019-02-14 06:23] LABS: CARBON DIOXIDE 28.4 mmol/L (21-32); CHLORIDE SERUM 104 mmol/L (98-107); GFR1 > 60 mL/min; GLUCOSE SERUM 83 mg/dL (74-106); POTASSIUM SERUM 3.9 mmol/L (3.5-5.1); SODIUM SERUM 140 mmol/L (136-145)
[2019-02-14 07:23] LABS: RED CELL DISTRIBUTION WIDTH 24.6 % (11.5-14.5)
[2019-02-14 07:25] LABS: PLATELET COUNT 802 x10^3mcL (130-400)
[2019-02-14 08:14] VITALS: BP 106/74
[2019-02-14 16:30] VITALS: BP 106/64
[2019-02-14 21:05] VITALS: BP 91/64
[2019-02-15 05:54] VITALS: BP 95/60
[2019-02-15 08:37] VITALS: BP 106/77
[2019-02-15 16:16] VITALS: BP 97/63
[2019-02-15 22:06] VITALS: BP 94/54
[2019-02-16 06:31] VITALS: BP 92/59
[2019-02-16 06:31] LABS: CALCIUM 8.5 mg/dL (8.5-10.1); CARBON DIOXIDE 31.1 mmol/L (21-32); CHLORIDE SERUM 106 mmol/L (98-107); GFR1 > 60 mL/min; GLUCOSE SERUM 87 mg/dL (74-106); POTASSIUM SERUM 5.5 mmol/L (3.5-5.1); SODIUM SERUM 140 mmol/L (136-145)
[2019-02-16 07:48] LABS: PLATELET COUNT 716 x10^3mcL (130-400); RED CELL DISTRIBUTION WIDTH 24.6 % (11.5-14.5)
[2019-02-16 09:04] VITALS: BP 96/64
[2019-02-16 16:56] VITALS: BP 114/84
[2019-02-16 20:43] VITALS: BP 116/72
[2019-02-17 05:43] VITALS: BP 122/80
[2019-02-17 10:31] VITALS: BP 103/70
[2019-02-17 18:03] VITALS: BP 86/61
[2019-02-17 21:27] VITALS: BP 91/58
[2019-02-18 06:00] VITALS: BP 99/68
[2019-02-18 09:09] VITALS: BP 95/69
[2019-02-18 22:47] VITALS: BP 101/66
[2019-02-19 09:09] VITALS: BP 80/52
[2019-02-19 17:19] VITALS: BP 112/76
[2019-02-19 20:24] VITALS: BP 95/61
[2019-02-20 06:05] VITALS: BP 96/66
[2019-02-20 06:59] LABS: CALCIUM 8.6 mg/dL (8.5-10.1); CARBON DIOXIDE 26.8 mmol/L (21-32); CHLORIDE SERUM 103 mmol/L (98-107); GFR1 > 60 mL/min; GLUCOSE SERUM 92 mg/dL (74-106); SODIUM SERUM 138 mmol/L (136-145)
[2019-02-20 08:37] LABS: PLATELET COUNT 685 x10^3mcL (130-400)
[2019-02-20 10:36] VITALS: BP 95/62
[2019-02-20 11:27] LABS: BAND NEUTROPHIL 0 % (0-10); BASOPHIL 0 % (0-2); SEGMENTED NEUTROPHILS 96 % (37-75)
[2019-02-20 11:30] LABS: MONOCYTE 2 % (0-7); PLATELET MORPHOLOGY PLATELETS INCREASED; rbc morphology (normal/abnorm) ABNORMAL (NORMAL)
[2019-02-20 16:55] VITALS: BP 96/64
[2019-02-20 20:37] VITALS: BP 96/66
[2019-02-21 06:02] VITALS: BP 119/70
[2019-02-21 22:38] VITALS: BP 88/56; BP 988/56
[2019-02-22 05:25] VITALS: BP 95/59
[2019-02-22 06:27] LABS: CALCIUM 8.4 mg/dL (8.5-10.1); CARBON DIOXIDE 34.1 mmol/L (21-32); CREATININE SERUM 1.1 mg/dL (0.6-1.0)
[2019-02-22 07:37] LABS: RED CELL DISTRIBUTION WIDTH 23.4 % (11.5-14.5)
[2019-02-22 08:33] VITALS: BP 105/65
[2019-02-22 09:14] LABS: BAND NEUTROPHIL 1 % (0-10); BASOPHIL 0 % (0-2); MONOCYTE 5 % (0-7); SEGMENTED NEUTROPHILS 74 % (37-75)
[2019-02-22 09:15] LABS: rbc morphology (normal/abnorm) ABNORMAL (NORMAL); target cell (codocyte) 2+
[2019-02-22 09:16] LABS: PLATELET MORPHOLOGY PLATELETS INCREASED
[2019-02-22 09:29] LABS: PLATELET COUNT 599 x10^3mcL (130-400)
[2019-02-22 18:19] VITALS: BP 109/73
[2019-02-23 11:06] VITALS: BP 93/61
[2019-02-23 18:06] VITALS: BP 106/70
[2019-02-24 06:00] VITALS: BP 127/83
[2019-02-24 09:22] VITALS: BP 118/79
[2019-02-24 17:23] VITALS: BP 98/55
[2019-02-24 19:15] VITALS: BP 102/74
[2019-02-25 05:40] VITALS: BP 104/66
[2019-02-25 09:32] VITALS: BP 91/61
[2019-02-25 18:27] VITALS: BP 113/70
[2019-02-25 19:53] VITALS: BP 91/58
[2019-02-26 05:03] VITALS: BP 116/78
[2019-02-26 09:20] VITALS: BP 107/69
[2019-02-26 18:30] VITALS: BP 104/61
[2019-02-26 20:39] VITALS: BP 95/55
[2019-02-27 05:56] VITALS: BP 109/68
[2019-02-27 08:08] LABS: CALCIUM 8.5 mg/dL (8.5-10.1); CARBON DIOXIDE 28.7 mmol/L (21-32); CHLORIDE SERUM 103 mmol/L (98-107); CREATININE SERUM 0.9 mg/dL (0.6-1.0); GFR1 > 60 mL/min; GLUCOSE SERUM 90 mg/dL (74-106); POTASSIUM SERUM 5.1 mmol/L (3.5-5.1); SODIUM SERUM 139 mmol/L (136-145)
[2019-02-27 09:12] VITALS: BP 108/47
[2019-02-27 16:30] LABS: PLATELET COUNT 435 x10^3mcL (130-400); RED CELL DISTRIBUTION WIDTH 22.5 % (11.5-14.5)
[2019-02-27 16:40] LABS: BAND NEUTROPHIL 6 % (0-10); MONOCYTE 4 % (0-7); SEGMENTED NEUTROPHILS 68 % (37-75)
[2019-02-27 16:41] LABS: BASOPHIL 0 % (0-2); PLATELET MORPHOLOGY PLATELETS INCREASED
[2019-02-27 16:42] LABS: rbc morphology (normal/abnorm) ABNORMAL (NORMAL)
[2019-02-27 16:43] LABS: target cell (codocyte) 1+
[2019-02-27 21:19] VITALS: BP 96/54
[2019-02-28 06:03] VITALS: BP 122/77
[2019-02-28 09:54] VITALS: BP 99/67
[2019-02-28 17:39] VITALS: BP 105/61
[2019-02-28 20:11] VITALS: BP 103/64
[2019-03-01 05:57] VITALS: BP 125/77
[2019-03-01 08:27] VITALS: BP 111/72
[2019-03-01] MEDS ORDERED: ALDACTONE25 MG PO (15:33)
[2019-03-01] MEDS ORDERED: TYLENOL PO (15:34)
[2019-03-01] MEDS ORDERED: PROZ10 PO (15:36)
[2019-03-01] MEDS ORDERED: ZYP10 PO (15:36)
[2019-03-01] MEDS ORDERED: DULCOLAX5 M1 PO (15:37)
[2019-03-01] MEDS ORDERED: LAC30L PO (15:38)
[2019-03-01] MEDS ORDERED: PROA PO (15:39)
[2019-03-01] MEDS ORDERED: MP PO (15:39)
[2019-03-01] MEDS ORDERED: REMERON30 MG PO (15:40)
[2019-03-01] MEDS ORDERED: THE PO (15:41)
[2019-03-01] MEDS ORDERED: CARAFATE1 GM PO (15:41)
[2019-03-01] MEDS ORDERED: FEOSOL65 M1 PO (15:43)
[2019-03-01] MEDS ORDERED: ULTRAM50 MG PO (15:44)
[2019-03-01] MEDS ORDERED: REGLAN10 M1 PO (15:44)
[2019-03-01] MEDS ORDERED: XANAX0.5 MG PO (15:46)
[2019-03-01] MEDS ORDERED: MEG40 PO (15:47)
[2019-03-01 15:57] VITALS: BP 111/72
[2019-03-01 16:00] VITALS: BP 111/72
== END 2019-03-01 19:07 | DRG 759 ==
LOC: ED 18:15 → MU 20:18 → DU 20:18 → MU 21:08 → DU 01-27 21:02 → MU 02-02 14:04
PROVIDERS: Emergency Medicine; Internal Medicine; Internal Medicine Gastroenterology; ADMIT Internal Medicine
PROC: 0DB78ZX Excision of Stomach, Pylorus, Via Natural or Artificial Opening Endoscopic, Diagnostic (ICD-10-PCS; principal; 2019-01-26 15:30)
PROC: 0DH68UZ Insertion of Feeding Device into Stomach, Via Natural or Artificial Opening Endoscopic (ICD-10-PCS; 2019-01-30)
PROC: 0D168ZA Bypass Stomach to Jejunum, Via Natural or Artificial Opening Endoscopic (ICD-10-PCS; 2019-01-30)
PROC: 0DJD8ZZ Inspection of Lower Intestinal Tract, Via Natural or Artificial Opening Endoscopic (ICD-10-PCS; 2019-02-14)
DX: F50.01 Anorexia nervosa, restricting type (principal); E43 Unspecified severe protein-calorie malnutrition; N17.9 Acute kidney failure, unspecified; F33.2 Major depressive disorder, recurrent severe without psychotic features; F25.1 Schizoaffective disorder, depressive type; R62.7 Adult failure to thrive; E86.0 Dehydration; F42.3 Hoarding disorder; F60.5 Obsessive-compulsive personality disorder; K59.09 Other constipation; D57.3 Sickle-cell trait; G89.29 Other chronic pain; M62.50 Muscle wasting and atrophy, not elsewhere classified, unspecified site; M47.892 Other spondylosis, cervical region; Z68.1 Body mass index [BMI] 19.9 or less, adult
CPT/HCPCS: 43235; 43760; 45378; 82962; 92526-GN; 92610; 97110-GP; 97116-GP; 97530-GP; C1769; J0690; J1200; J1610; J1650; J1885; J1940; J1956; J2250; J2270; J2310; J2405; J2550; J2765; J3010; J3490; J7030; J7040; J7131; J8597; Q0092; Q0162; Q9967

== ENCOUNTER 2019-06-05 12:48 | Emergency (ER) | payer OTHER ==
[~2019-06-05 12:48] MED LIST changes: +ALDACTONE25 MG PO; +CARAFATE1 GM PO; +DULCOLAX5 M1 PO; +FEOSOL65 M1 PO; +LAC30L PO; +MECLIZINE HYDRO25 M1 PO; +MEG40 PO; +MP PO; +PROA PO; +PROZ10 PO; +REGLAN10 M1 PO; +REMERON30 MG PO; +THE PO; +TYLENOL PO; +ULTRAM50 MG PO; +XANAX XR2 M1 PO; +XANAX0.5 MG PO; +ZOF4 PO; +ZYP10 PO
== END 2019-06-05 12:55 | disposition left against medical advice (07) ==
LOC: ED 12:48
DX: Z53.21 Procedure and treatment not carried out due to patient leaving prior to being seen by health care provider (principal)

== ENCOUNTER 2019-09-22 14:05 | Inpatient (IN) | payer OTHER ==
[~2019-09-22] VITALS: Ht 170.2 cm; Wt 50.3 kg
[~2019-09-22 14:05] MED LIST changes: +DULCOLAX5 M1 GT; -DULCOLAX5 M1 PO; +LAC30L GT; -LAC30L PO; +PROZ10 GT; -PROZ10 PO; +REMERON30 MG GT; -REMERON30 MG PO; +ULTRAM50 MG GT; -ULTRAM50 MG PO; +ZYP10 GT; -ZYP10 PO
--- NOTE | 2019-09-22 14:07 | NUR ---
PT BROUGHT IN BY AMBULANCE FROM HOME S/P UNWITNESSED FALL STUNT WOMAN, PER MEDICS FAMILY STATED "SHE WAS ACTING MORE ALTERED THAN NORMAL, SHE HAS SEVERE DEPRESSION WHERE SHE IS BASICALLY GRAVELY DISABLED AND HAS A FEEDING TUBE FROM IT" PER MEDICS PT HAS HX DEPRESSION, PER MEDICS PT HYPOTENSIVE STUNT WOMAN, UPON ARRIVAL PT AWAKE AND ALERT, PT ORIENTED TO NAME AND REMEMBERS THAT SHE FELL HOWEVER CANNOT RECALL WHY, PT NOT ORIENTED TO TIME OR PLACE, PT DENIES FOLLOWS COMMANDS WHEN ASKED TO COSMETICS DEMONSTRATOR BOTH HANDS, AND ABLE TO PERFORM BILATERAL PLANTAR FLEXION ON COMMAND, PT DENIES CHEST PAIN AND/OR SOB, LACERATION NOTED TO FOREHEAD AND BRIDGE OF NOSE WITH MILD SWELLING, BLEEDING CONTROLLED, NO DEFORMITIES NOTED, PT HYPOTENSIVE, GOWNED, PLACED ON FULL CM, IN TRENDELENBRUG WITH BOTH GURNEY RAILS UP, BED LOCKED AND IN LOWEST POSITION
--- NOTE | 2019-09-22 14:18 | NUR ---
MD OCONNOR AT BEDSIDE PERFORMING MSE
--- NOTE | 2019-09-22 14:38 | NUR ---
MD OCONNOR AT BEDSIDE BEDSIDE PERFORMING LACERATION REPAIR
--- NOTE | 2019-09-22 14:40 | NUR ---
MD OCONNOR AT BEDSIDE BEDSIDE PERFORMING SUTURES TO FOREHEAD LACERATION
[2019-09-22 14:51] LABS: microscopic required? YES; urine erythrocyte TRACE (NEGATIVE)
--- NOTE | 2019-09-22 14:57 | NUR ---
EMT TIRSO AT BEDSIDE PERFORMING WOUND CARE
[2019-09-22 15:00] LABS: AMPHETAMINE QUAL UR NONE DETECTED (See below)
--- NOTE | 2019-09-22 15:00 | NUR ---
WHEN ASKED AGAIN IF PT CAN RECALL THE SITUATION ASSEMBLY MECHANIC,PT STS "I HAD REALLY BAD DIARRHEA STARTING TODAY SO I RAN TO THE BATHROOM AND FELL ON THE WAY" MD OCONNOR MADE AWARE
--- NOTE | 2019-09-22 15:05 | NUR ---
[facility] CONSENT FORM SIGNED BY PT AND PLACED IN PT CHART
--- NOTE | 2019-09-22 15:14 | NUR ---
PT TAKEN TO CT VIA SAURAV IN STABLE CONDITION
[2019-09-22 15:15] LABS: PLATELET COUNT 409 x10^3mcL (130-400); RED CELL DISTRIBUTION WIDTH 19.8 % (11.5-14.5)
[2019-09-22 15:22] LABS: CALCIUM 8.8 mg/dL (8.5-10.1); CARBON DIOXIDE 26.8 mmol/L (21-32); CHLORIDE SERUM 106 mmol/L (98-107); CREATININE SERUM 2.2 mg/dL (0.6-1.0); GFR1 24 mL/min; GLUCOSE SERUM 81 mg/dL (74-106); POTASSIUM SERUM 4.2 mmol/L (3.5-5.1); SODIUM SERUM 140 mmol/L (136-145)
[2019-09-22 15:31] LABS: ALKALINE PHOSPHATASE 94 U/L (46-116); ALT/SGPT 27 U/L (14-59); AST/SGOT 25 U/L (15-37); HDL CHOLESTEROL 46 mg/dL (40-60); LIPASE 95 IU/L (73-393); MAGNESIUM 2.6 mg/dL (1.8-2.4); T4(THYROXINE) 7.9 ug/dL (4.7-13.3); TOTAL PROTEIN, SERUM 6.9 g/dL (6.4-8.2)
[2019-09-22 15:33] LABS: BAND NEUTROPHIL 0 % (0-10); BASOPHIL 0 % (0-2); MONOCYTE 7 % (0-7); SEGMENTED NEUTROPHILS 66 % (37-75)
[2019-09-22 15:34] LABS: rbc morphology (normal/abnorm) ABNORMAL (NORMAL)
[2019-09-22 15:35] LABS: ALBUMIN 2.3 g/dL (3.4-5.0); CHOLESTEROL 209 mg/dL (<200)
--- NOTE | 2019-09-22 15:53 | NUR ---
PT C/O HEAD PAIN AND RIGHT HIP PAIN "FROM HITTING TOILET WHEN I FELL, I SHOULD HAVE CALLED MY FAMILY IN BUT I COULDN'T TO GO THE BATHROOM BUT I NEED THEM TO HELP ME GO SO I DON'T FALL"
--- NOTE | 2019-09-22 15:55 | NUR ---
WARM BLANKET PROVIDED PER PT REQUEST AND COMFORT
--- NOTE | 2019-09-22 16:08 | NUR ---
ICE CHIPS PROVIDED PER [facility] REQUEST AND MD OCONNOR VERBAL OKAY
--- NOTE | 2019-09-22 16:11 | NUR ---
UPON ENTERING RM, PT STS "I ACCIDENTALLY TUGGED ON THIS AND IT IS BLEEDING" IN REFERENCE TO LEFT FOREARM IV, IV D/C'D, ANGIOCATH INTACT, BLEEDING CONTROLLED
--- NOTE | 2019-09-22 17:03 | NUR ---
PT TAKEN TO XRAY VIA DARCIERWILLIAN IN STABLE CONDITION
--- NOTE | 2019-09-22 17:03 | NUR ---
PT RESTING IN POSITION OF COMFORT, AWAKE AND ALERT, IN NAD, VSS, NSR ON CM
--- NOTE | 2019-09-22 17:22 | NUR ---
REPORT GIVEN TO BEVERLEY BUITRAGO TO ASSUME CARE OF PT.
--- NOTE | 2019-09-22 17:24 | NUR ---
RECEIVED TELEPHONE REPORT FROM NORRIS LOWERY IN ED FOR PATIENT. AWAITING PATIENT ARRIVAL ON FLOOR
[2019-09-22] MEDS ORDERED: XANAX0.25 MG PO (17:29)
[2019-09-22] MEDS ORDERED: RISPERIDONE3 M2 GT (17:29)
[2019-09-22] MEDS ORDERED: LORAZEPAM1 MG PO (17:30)
[2019-09-22] MEDS ORDERED: LORAZEPAM2 MG PO (17:31)
--- NOTE | 2019-09-22 17:37 | NUR ---
PT WAS RECEIVED BY PRIMARY NURSE IFTIKHAR FROM ED. PT SEEN LYING IN BED, CAME IN DUE TO SYNCOPE. AAOX4. C/O HEADACHE, RIGHT NECK, RIGHT SHOULDER AND RIGHT HIP PAIN. ABLE TO FOLLOW COMMANDS. NO FACIAL DROOP/ARM DRIFT. NO SOB NOTED, LUNG SOUNDS CTA. O2 HPJ=948%, RA. DENIES CHEST PAIN/PRESSURE, SR ON THE MONITOR. DENIES ABDOMINAL PAIN/NAUSEA/VOMITING. HAD 1 EPISODE OF DIARRHEA. W/ PEG TUBE, CLAMPED. PT STATED THAT SHE CAN SWALLOW FOODS AND MEDS NEEDS TO BE CRUSHED (CAN TAKE IT ORALLY), HAS NOT BEEN USING THE PEG TUBE FOR FEEDING FOR AWHILE. PT CAN'T REMEMBER THE FORMULA USED ON HER FEEDING. W/ SUTURES ON THE MID-FOREHEAD AND BRIDGE OF THE NOSE, NON-ADHERENT DRESSING PLACED SECURED W/ PAPER TAPE. SIDE RAILS UPX2. CALL LIGHT ON REACH. HOB ELEVATED AT 30 DEG. PRIMARY NURSE IFTIKHAR AT BEDSIDE FOR CONTINUITY OF CARE
[2019-09-22 18:15] VITALS: BP 113/80
[2019-09-22 18:20] VITALS: Ht 170.2 cm; Wt 50.3 kg
--- NOTE | 2019-09-22 18:40 | NUR ---
RECEIVED CALL FROM ED NURSE STATING THAT ED DOCTOR ENTERED NEW ORDERS BASED ON RESULTS FROM XRAYS. PELVIS XRAY SHOWED POSSIBLE NONDISPLACED FRACTURE OF RIGHT FEMORAL HEAD. CT ORDERED. STATING THAT CHEST XRAY SHOWED POSSIBLE PNUEMONIA. BLOOD CULTURES ORDERED WELL STAT LACTIC, FLUID BOLUS AND NEW ANTIBIOTIC ORDERS WHEN IS NOT SEEN ON MY ORDERS. LABS DRAWN AND PATIENT TAKEN DOWN FOR CT AT THIS TIME. PATIENT MOTHER, JO ANN CALLED AND WAS UPDATED ABOUT PATIENT CONDITION
--- NOTE | 2019-09-22 19:07 | NUR ---
PATIENT BACK FROM CT. CALLED AND LEFT MESSAGE KATELYN BARRERA ABOUT ED ORDERS AND DIET. ENDORSED CARE TO ORALIA LOWERY, ALL QUESTIONS ADDRESSED AND ANSWERED
--- NOTE | 2019-09-22 19:20 | NUR ---
RECEIVED REPORT FROM IFTIKHAR LOWERY. PT AAOX4 AND DENIES HEADACHE OR DIZZINESS AT THIS TIME. PT ON TELE #20, NSR WITH HR 91. PT DENIES CHEST PAIN OR PRESSURE AT THIS TIME. PT PULSES PALPABLE AND CAP REFILL <3 SEC. PT C/O NUMBNESS ON BLE AND TINGLING ON FINGERTIPS. PT HAS HX OF NEUROPATHY. PT LUNG SOUNDS CTA ON RA. PT BREATHING EVEN AND UNLABORED. PT DENIES SOB OR RESPIRATORY DISTRESS AT THIS TIME. PT ABD SOFT AND NONDISTENDED. PT BOWEL SOUNDS ACTIVE X4. PT LBM 09/22, C/O DIARRHEA. PT HAS G-TUBE , CLAMPED AT THIS TIME. PT DENIES N/V AT THIS TIME. PT VOIDS FREELY. PT HAS GENERALIZED WEAKNESS AND IS BEDBOUND AT THIS TIME. PT USES WHEELCHAIR. PT HAS SUTURES ON MID-FOREHEAD AND BRIDGE OF NOSE WITH NONADHERENT DRESSING PLACED WITH PAPER TAPE. CALL LIGHT WITHIN REACH. BED IN LOWEST POSITION. SIDE RAILS X2 UP. WILL CONTINUE TO MONITOR.
[2019-09-22 19:39] VITALS: BP 122/71
--- NOTE | 2019-09-22 22:15 | NUR ---
PT SLEEPING, BUT EASILY AROUSABLE BY VERBAL STIMULI. PT IVF INFUSING WELL AT THIS TIME. NO ACUTE DISTRESS NOTED. CALL LIGHT WITHIN REACH. BED IN LOWEST POSITION. SIDE RAILS X2 UP. WILL CONTINUE TO MONITOR.
--- NOTE | 2019-09-23 01:59 | NUR ---
IV TO LFA WAS SWOLLEN. IV D/C, CATH INTACT. PRESSURE APPLIED AND BANDAGED. NEW IV INSERTION TO CLARICE 22G. GOOD BLOOD RETURN. FLUSHED 10CC NS. NO S/S OF REDNESS, PAIN, OR SWELLING NOTED. IVF CONTINUED. WILL CONTINUE TO MONITOR.
--- NOTE | 2019-09-23 02:56 | NUR ---
PT SLEEPING, BUT EASILY AROUSABLE. PT DENIES ANY PAIN AT THIS TIME. NO ACUTE DISTRESS NOTED. IVF INFUSING WELL. NO S/S OF SWELLING, PAIN, OR REDNESS AT IV SITE. CALL LIGHT WITHIN REACH. BED IN LOWEST POSITION. SIDE RAILS X2 UP. WILL CONTINUE TO MONITOR.
--- NOTE | 2019-09-23 05:24 | NUR ---
PT SLEPT THROUGHOUT THE NIGHT. PT COMPLIED WITH NURSING CARE THROUGHOUT THE SHIFT. COMFORT AND SAFETY MEASURES MAINTAINED. ALL QUESTIONS AND CONCERNS ADDRESSED. WILL ENDORSE CARE TO DAY SHIFT NURSE. WILL CONTINUE TO MONITOR.
--- NOTE | 2019-09-23 05:54 | NUR ---
PT REFUSED FOR VITAL SIGNS TO BE TAKEN BY BRANCH SPECIALIST AND BY RN. WILL CONTINUE TO MONITOR.
[2019-09-23 07:08] LABS: T4(THYROXINE) 6.1 ug/dL (4.7-13.3)
--- NOTE | 2019-09-23 07:21 | NUR ---
ENDORSED CARE TO IFTIKHAR LOWERY. ALL QUESTIONS AND CONCERNS ADDRESSED.
--- NOTE | 2019-09-23 07:35 | NUR ---
RECEIVED HAND OFF REPORT FROM SOLE LEVELER MACHINE. PATIENT LAYING SUPINE WITH HOB RAISED, A/O X4, COMPLAINTS OF CHRONIC PAIN TO NECK AND LEGS. PELVIS CT SHOWED NO FRACTUR. TELE [address] ON PATIENT SHOWING NSR, NO COMPLAINTS OF CHEST PAIN. LUNG SOUNDS CTA, INTERMITTENT DRY COUGH REPORTED THAT RESULTED IN X1 EPISODE OF VOMITING, PATIENT DID NOT WANT MEDICATION FOR NAUSEA. PER HAIR DRESSER, PATIENT REFUSED VITAL SIGNS THIS MORNING. SUTRUES TO MID FOREHEAD DRESSING CDI. IV TO RIGHT UPPER ARM INFUSING WELL CALL LIGHT WITHIN REACH, WILL CONTINUE TO MONITOR
[2019-09-23 07:37] LABS: CALCIUM 7.9 mg/dL (8.5-10.1); CARBON DIOXIDE 24.6 mmol/L (21-32); PLATELET COUNT 404 x10^3mcL (130-400); POTASSIUM SERUM 4.6 mmol/L (3.5-5.1); RED CELL DISTRIBUTION WIDTH 20.1 % (11.5-14.5)
[2019-09-23 09:18] VITALS: BP 111/75
--- NOTE | 2019-09-23 10:48 | NUR ---
PATIENT RESTING, ROUSABLE BY SOUND, ADMINISTERED MEDICATIONS, CRUSHED WITH APPLE SAUCE DUE TO POSSIBLE PROBLEMS WITH SWALLOWING. FERROUS SULFATE TABLET WAS NOT CRUSHED DUE TO ENTERIC COATED. SWALLOWED WITH NO ISSUES. BLOOD PRESSURE WAS 96/62. NO COMPLAINTS OF PAIN. CALL LIGHT WITHIN REACH
[2019-09-23 11:02] LABS: ERYTHROCYTE SED RATE 66 mm/hr (0-30)
[2019-09-23 12:32] LABS: SEGMENTED NEUTROPHILS 68 % (37-75)
[2019-09-23 12:33] LABS: BAND NEUTROPHIL 1 % (0-10); BASOPHIL 1 % (0-2); MONOCYTE 6 % (0-7)
[2019-09-23 12:34] LABS: rbc morphology (normal/abnorm) ABNORMAL (NORMAL); target cell (codocyte) 1+
[2019-09-23 12:35] LABS: PLATELET MORPHOLOGY PLATELETS NORMAL
[2019-09-23 12:46] VITALS: BP 122/78
--- NOTE | 2019-09-23 12:49 | NUR ---
ADMINSTERED MEDICATIONS PER MAR, CRUSHED. MIKEN HAD NO COMPLAINTS A THIS TIME. REQUESTING TO REST INSTEAD OF EAT LUNCH. CALL LIGHT WITHIN REACH
--- NOTE | 2019-09-23 13:00 | NUR ---
CALLED AND SPOKE TO AND VERIFIED/CONFIRMED WITH HIM PROCRIT ORDER AND SAYS ONE DOSE ONLY. ITFIKHAR LOWERY ASSIGNED TO THIS PT MADE AWARE OF ABOVE.
[2019-09-23 16:36] VITALS: BP 119/74
--- NOTE | 2019-09-23 16:51 | NUR ---
PATIENT WOKE WHEN SPOKEN TO, ADMINSITERED MEDICATIONS, CRUSHED, EXCEPT FOR FERROUS SULFATE. PATIENT VSS, COMPLAINING OF PAIN TO BASE OF NECK, DULL, CHRONIC PAIN 03/05. MEDICATED WITH NORCO PRN FOR PAIN. CALL LIGHT WITHIN REACH
--- NOTE | 2019-09-23 19:20 | NUR ---
REC'D PT FROM DAY NURSE. PT RESTING IN BED. AAOX4, SPEECH CLEAR, FOLLOWS COMMANDS. DRESSINGS NOTED TO FOREHEAD AND NOTED, CDI. TELE 20. DENIES CP, DIZZINESS, OR PALPITATIONS. DENIES RESP DISTRESS OR SOB. BREATHING EVEN/UNLABORED ON RA. NO EDEMA NOTED. ABD SOFT/NONTENDER. DENIES ABD PAIN OR N/V. LUQ PEG IN PLACE, CLAMPED. VOIDING FREELY. GEN WEAKNESS. ABLE TO MOVE ALL EXTREMITIES. C/O R SHOULDER 8/10 PAIN, THROBBING. WILL GIVE NORCO WHEN DUE. IV TO RAC PATENT AND INFUSING, SITE WNL. CALL LIGHT WITHIN REACH, BED AT LOWEST POSITION. WILL CONTINUE TO MONITOR.
--- NOTE | 2019-09-23 19:29 | NUR ---
ENDORSED CARE TO NIGHT NURSE. ALL QUESTIONS ADDRESSED
[2019-09-23 20:30] VITALS: BP 113/73
--- NOTE | 2019-09-24 02:07 | NUR ---
PT RESTING IN BED WITH EYES CLOSED. NO SIGNS OF DISTRESS OR PAIN NOTED. BREATHING EVEN/UNLABORED ON RA. CALL LIGHT WITHIN REACH, BED AT LOWEST POSITION. WILL CONTINUE TO MONITOR.
--- NOTE | 2019-09-24 06:12 | NUR ---
PT RESTING IN BED WITH EYES CLOSED. NO SIGNS OF DISTRESS OR PAIN NOTED. BREATHING EVEN/UNLABORED ON RA. NO SIGNIFICANT CHANGES DURING SHIFT. CALL LIGHT WITHIN REACH, BED AT LOWEST POSITION.
[2019-09-24 06:19] VITALS: BP 123/76
--- NOTE | 2019-09-24 07:03 | NUR ---
OFFERED MEDICATIONS THIS MORNING BUT PT REFUSED. STATED "I'M NOT TAKING NO MEDS RIGHT NOW. I JUST TOOK THEM THREE HOURS AGO." INFORMED PT SHE HAD LAST TAKEN MEDICATIONS AROUND 10 PM LAST NIGHT AND IT'S BEEN 9 HOURS. EDUCATED PT REGARDING TAKING MEDS INCLUDING FERROUS SULFATE TO HELP INCREASE H/H. PT STILL REFUSED STATING "I SAID I'M NOT TAKING MEDS RIGHT NOW." WILL OFFER AGAIN LATER.
[2019-09-24 07:28] LABS: BILIRUBIN TOTAL 0.15 mg/dL (0.20-1.00); CALCIUM 7.9 mg/dL (8.5-10.1); CARBON DIOXIDE 24.2 mmol/L (21-32); CREATININE SERUM 1.9 mg/dL (0.6-1.0); PHOSPHOROUS 3.4 mg/dL (2.5-4.9); POTASSIUM SERUM 4.7 mmol/L (3.5-5.1); TOTAL PROTEIN, SERUM 6.5 g/dL (6.4-8.2)
[2019-09-24 07:33] LABS: PLATELET COUNT 434 x10^3mcL (130-400); RED CELL DISTRIBUTION WIDTH 20.2 % (11.5-14.5)
[2019-09-24 08:45] VITALS: BP 122/77
--- NOTE | 2019-09-24 09:00 | NUR ---
PT C/O ANXIETY AND AGITATED WITH OTHER PT IN THE ROOM D/T NOISE. PRN XANAX GIVEN. PT AGREEABLE TO TAKE SCHEDULED MEDS AT THIS TIME. DRESSINGS TO MID FOREHEAD AND BRIDGE OF NOSE REMOVED. FOREHEAD: LACERATION WITH SUTURES, 1.5 CM. BRIDGE OF NOSE: LACERATION WITH SUTURES, 0.5 CM. R SIDE OF NARES- SMALL DRY ABRASION. WEEKLY PICTURES OBTAINED. LEFT TARIK. DARLING PERIORBITAL EDEMA NOTED WITH GREATER EDEMA TO R EYE. BREAKFAST SET UP FOR PT. WATCHING TV. CALL LIGHT WITHIN REACH, BED AT LOWEST POSITION.
[2019-09-24 09:09] LABS: RHEUMATOID ARTHRITIS FACTOR <10.0 IU/mL (0.0-13.9)
--- NOTE | 2019-09-24 11:42 | NUR ---
Initial Nutrition Assessment: 208T/A VICKY PAREDES IA HR Dx: Syncope PMHx: anorexia psych d/o dehydration malnourishment, HTN, Periperal Neuropathy, Vertigo, Iron Deficiency Anemia, Chronic Renal Failure, Hypothyroidism PSHx: none Labs: BUN 24H, CREAT 1.9H, ALB 2.0L, CHOL 209H, MG 2.6H, HGB 8.9L Meds: Aldactone, antivert, Carafate, cephulac, dulcolax, ferrous sulfate, megace, morphine, norco, phenegran, Remeron, theragran, zofran Diet: mechanically soft- chopped, Ensure TID PO intake since admission: (09/23) breakfast 90% Ht: 170.18 cm (67") Wt: 50.3 kg (111#) BMI: 17.4 kg/m2 Bed scale: 50.3 kg IBW: 135# (61 kg) %IBW: 82 UBW: 45-50 kg Age: 59/F Food Allergies: NKFA Skin: LUQ PEG, clamped, lacerations to mid forehead, bridge of nose with sutures Chi: 17 Edema: none GI: poor appetite, hx of anorexia Last BM: 09/23 Per H&P, Pt is a 59 YO female h/o anorexia psych d/o dehydration malnourishment, HTN, found down in her bathroom by her family members. RD Note (09/24): Patient was lethargic and has bruises over her face. Patient said that she did not eat nay breakfast this morning but she drank ONS Ensure. Patient was admitted in February this year and is known to RD. Patient was on Jevity 1.2 @ 60 ML/HR (nocturnal 10 pm-6am) + regular diet with Ensure TID. Patient was anorexic at that time. Patient was tolerating tube feedings at that time. Patient weight 50 kg on 02/26/2019. Problem with: N/V/D/C: some nausea and vomiting per patient Problems with: Chewing: Swallowing: yes, d/t facial wound Current appetite: poor Recent wt change: none %wt change: n/a Vitamin/Supplement use: ensure TID Special diet at home: Regular Physical activity: sedentary Nutrition education given: PO was encouraged Food-drug interactions: none Education given: n/a Estimated Nutritional Needs Based on current body weight (50.3 kg) Energy: 4390-3453 kcal/day (35-40 kcal/kg for malnutrition) Protein: 60-70 g/day (1.2-1.4 g/kg for malnutrition) Fluid: 9655-3810 mL/day (1 mL/kcal) Nutrition Diagnosis: 1. Malnutrition related to chronic poor PO 2/2 anorexia as evidenced by BMI 17.4 kg/m2 Intervention 1. Recommend continuing Regular diet with ONS Ensure TID. ONS Ensure will provide an additional 1050 kcal and 60g protein. 2. If PO continues to decline, Recommend tube feedings Jevity 1.2 @ 20 ml/hr, goal 60 ml/hr. This will provide 1730 kcal and 80g protein. Monitor/Evaluate Goal: PO intake at least 75% of estimated needs Monitor: PO intake, Labs, GI function F/U in 2-3 days as high risk 09/26-2
[2019-09-24 11:50] LABS: BAND NEUTROPHIL 2 % (0-10); BASOPHIL 0 % (0-2); MONOCYTE 4 % (0-7); SEGMENTED NEUTROPHILS 85 % (37-75)
[2019-09-24 11:52] LABS: PLATELET MORPHOLOGY PLATELETS INCREASED; rbc morphology (normal/abnorm) ABNORMAL (NORMAL); target cell (codocyte) 2+
--- NOTE | 2019-09-24 12:51 | NUR ---
SPOKE TO DR. BARRERA. RECOMMENDED TO ADD PT CONSULT, FNS CONSULT, WELL ADD PARAMETERS TO MIDODRINE ADMINISTRATION. STATED HOLD MIDODRINE IF SBP>100.
--- NOTE | 2019-09-24 13:02 | NUR ---
DR. BARRERA MADE AWARE OF DIETARY RECOMMENDATIONS OF INITIATING JEVITY 1.2 @ 20 ML/HR WITH GOAL RATE OF 60 ML/HR IF PT CONTINUES TO HAVE POOR PO INTAKE. REC'D ORDERS TO CONTINUE TF CONCURRENTLY WITH REGULAR ([facility] SOFT) DIET + ENSURE. TF DIET TO START @ DINNER.
--- NOTE | 2019-09-24 14:03 | NUR ---
RECEIVED BEDSIDE REPORT FROM BEVERLEY BAILEY; PT IN BED, SLEEPING; NO ACUTE RESPIRATORY DISTRESS, PAIN, OR DISCOMFORT NOTED. WILL CONTINUE TO MONITOR.
--- NOTE | 2019-09-24 14:28 | NUR ---
PHYSICAL THERAPY NOTE PATIENT LYING IN BED SUPINE COMFORTABLY UPON ARRIVAL. PATIENT WAS CLEARED BY NURSING FOR TREATMENT AND EVAL. PATIENT REFUSED EVAL AND TREATMENT AT THIS TIMESCONDARY TO INCREASE GENERAL MS SORENESS AND STIFFNESS. PATIENT EDUCATED WITH BENEFITS OF TREATMENT TO INCREASE OVERALL SAFETY AWARENESS AND FUNCTIONAL MOBILITY. PATIENT UNABLE TO ENCOURAGE AT THIS TIME. NURSING CONFIRMED AND AWARE. WILL ATTEMPT NEXT VISIT.
--- NOTE | 2019-09-24 15:23 | NUR ---
PT C/O AGITATION AMB RESTLESSNESS. GIVEN XANAX 0.5MG PO. PT FAMILY MEMBER BY BEDSIDE. WILL CONTINUE TO MONITOR.
[2019-09-24 17:48] VITALS: BP 136/81
--- NOTE | 2019-09-24 18:42 | NUR ---
PT IN BED, RESTING COMFORTABLY. NO ACUTE RESPIRATORY DISTRESS, PAIN, OR DISCOMFORT NOTED. D5NS 100ML/HR CONTINUES TO INFUSE WITHOUT INTERRUPTION. WILL ENDORSE TO NOC SHIFT.
--- NOTE | 2019-09-24 19:30 | NUR ---
REC'D PT FROM DAY NURSE. PT RESTING IN BED. AAOX4, SPEECH CLEAR, FOLLOWS COMMANDS. SUTURES NOTED TO MIDLINE FORHEAD AND BRIDGE OF NOSE MISDRAW HAND. SMALL ABRASION TO R SIDE OF NOSE, DRY AND TARIK. MILD PERIORBITAL EDEMA. TELE 20. DENIES CP, DIZZINESS, OR PALPITATIONS. DENIES RESP DISTRESS OR SOB. BREATHING EVEN/UNLABORED ON RA. ABD SOFT/ROUND. DENIES ABD PAIN, TENDERNESS, OR N/V. TF INFUSING JEVITY 1.2 @ 20 ML/HR VIA LUQ PEG. NO RESIDUAL. VOIDING FREELY USING BEDPAN. GEN WEAKNESS. REPOSITIONING SELF IN BED. DENIES PAIN AT THIS TIME. NO IV CURRENTLY, WILL REPLACE. CALL LIGHT WITHIN REACH, BED AT LOWEST POSITION. WILL CONTINUE TO MONITOR.
[2019-09-24 22:35] VITALS: BP 140/90
--- NOTE | 2019-09-24 23:15 | NUR ---
RESIDUAL CHECKED: 25 ML, REPLACED. TF RATE INCREASED TO 30 ML/HR PER ORDER. NO WATER FLUSHES. PT SLEEPING. LAYING ON R SIDE WITHOUT DISTRESS. WILL CONTINUE TO MONITOR.
--- NOTE | 2019-09-25 00:53 | NUR ---
PT RESTING IN BED WITH EYES CLOSED. NO SIGNS OF DISTRESS NOTED. BREATHING EVEN/UNLABORED ON RA. LAYING ON R SIDE. TF INFUSING @ 30 ML/HR. CALL LIGHT WITHIN REACH, BED AT LOWEST POSITION. WILL CONTINUE TO MONITOR.
--- NOTE | 2019-09-25 03:11 | NUR ---
5 ML RESIDUAL REPLACED. RATE INCREASED TO 40 ML/HR PER ORDER. PT SLEEPING. LAYING ON R SIDE. WILL CONTINUE TO MONITOR.
[2019-09-25 05:08] LABS: RAPID PLASMA REAGIN Non Reactive (Non Reactive)
[2019-09-25 05:28] VITALS: BP 125/82
--- NOTE | 2019-09-25 06:31 | NUR ---
PT SLEEPING. LAYING ON R SIDE. REFUSED MEDS THIS MORNING D/T BEING SLEEPY. EDUCATED PT REGARDING PURPOSE OF REGLAN FOR GI MOTILITY AND CARAFATE TO COAT THE STOMACH FOR THE PREVENTION OF ULCERS BUT PT STILL REFUSED. TF INFUSING @ 40 ML/HR. 3 ML RESIDUAL REPLACE. INCREASED RATE TO 50 ML/HR PER ORDER. GOAL RATE 60. CALL LIGHT WITHIN REACH, BED AT LOWEST POSITION. WILL ENDORSE TO DAY NURSE.
[2019-09-25 06:43] LABS: BILIRUBIN TOTAL 0.2 mg/dL (0.20-1.00); CALCIUM 8.3 mg/dL (8.5-10.1); CARBON DIOXIDE 22.5 mmol/L (21-32); CREATININE SERUM 1.6 mg/dL (0.6-1.0); POTASSIUM SERUM 4.3 mmol/L (3.5-5.1); TOTAL PROTEIN, SERUM 6.3 g/dL (6.4-8.2)
[2019-09-25 06:48] LABS: ALBUMIN 1.9 g/dL (3.4-5.0)
[2019-09-25 07:25] LABS: PLATELET COUNT 426 x10^3mcL (130-400); RED CELL DISTRIBUTION WIDTH 20.8 % (11.5-14.5)
--- NOTE | 2019-09-25 07:52 | NUR ---
RECIEVED REPORT FROM [facility] NURSE ROY. PATIENT CURRENTLY AWAKE ALERT AND ORIENTED. TUBE FEEDING RUNNING AT 50/HOUR. GOAL IS 60/HOUR. SHAUN REEVALUATE AT 1100. PRATIENT ON TELEMETRY # 20- NSR. NO REPORT OF PAIN AT THIS TIME. NO REPORT OF DIZZINESS AT THIS TIME. BED IN THE LOW POSITION. ALL SAFETY PRECAUTIONS IN PLACE. CALL LIGHT WITHIN REACH. PATIENT INSTRUCTED TO UTILIZE CALL LIGHT PRIOR TO AMBULATION SO THAT ASSISTANCE CAN BE PROVIDED.
[2019-09-25 07:54] VITALS: BP 98/53
[2019-09-25 09:39] LABS: BAND NEUTROPHIL 1 % (0-10); BASOPHIL 0 % (0-2); MONOCYTE 3 % (0-7); SEGMENTED NEUTROPHILS 90 % (37-75)
[2019-09-25 09:42] LABS: PLATELET MORPHOLOGY PLATELETS INCREASED; rbc morphology (normal/abnorm) ABNORMAL (NORMAL); target cell (codocyte) 2+
--- NOTE | 2019-09-25 11:28 | NUR ---
TUBE FEEDING RESIDUAL CHECKED. PATIENT CURRENTLY HAS A RESIDUAL OF 260cc. 200 RETURNED TO PATIENT. FEEDING TURNED OFF PER PHYSICIAN ORDER WHEN RESIDUAL > 100cc. WILL RECHECK RESIDUAL WITHIN ONE HOUR.
[2019-09-25 11:29] VITALS: BP 136/88
--- NOTE | 2019-09-25 12:52 | NUR ---
RESIDUAL FEEDING CHECKED ON PATIENT. RESIDUAL CONTINUES TO REMAIN AT 200cc OVER AN HOUR AFTER STOPPING FEED. RESIDUAL RETURNED TO PATIENT. WILL RECHECK RESIDUAL IN ONE HOUR.
--- NOTE | 2019-09-25 14:10 | NUR ---
CHECKED RESIDUAL AGAIN ON PATIENT. RESIDUAL CONTINUES TO REMAIN AT 200cc. 200cc RETRIEVED FROM RESIDUAL DISCARDED IN ORDER TO PREVENT COMPLICATIONS. WILL CONTACT PHYSICIAN PROVIDING OVER CARE AND NOTIFY OF FINDINGS.
--- NOTE | 2019-09-25 15:15 | NUR ---
SPOKE WITH DR. BARRERA REGARDING IF PT STILL REQUIRED TELE SERVICES. PER MD KINGSLEY TO DOWN GRADE TO MED-SURG SERVICES.
--- NOTE | 2019-09-25 15:22 | NUR ---
TUBE FEEDING RESUMED AT RATE OF 50 cc/hour. WILL CONTINUE TO MONITOR.
--- NOTE | 2019-09-25 15:45 | NUR ---
PEG TUBE DRESSING CHANGED.
--- NOTE | 2019-09-25 16:38 | NUR ---
PATIENT CURRENTLY REFUSING ALL MEDICATIONS. EDUCATION PROVIDED REGARDING HEALTH RISKS.
[2019-09-25 16:45] VITALS: BP 140/87
--- NOTE | 2019-09-25 17:20 | NUR ---
RESIDUAL CHECKED ON PATIENT. NO RESIDUAL RETRIEVED FROM PATIENT. TUBE FEEDING RUNNING AT 50cc/hour. WILL ENDORSE CARE TO NOC NURSE REGARDING INCREASING FEED TO 60cc AT 1930. NO REPORT OF PAIN FROM PATIENT AT THIS TIME.
--- NOTE | 2019-09-25 21:14 | NUR ---
Pt. received from day shift, currently resting in bed, awake and alert. Pt. at this time has no c/o of h/a, n, v, sob, chest pain, pain, or s/o distress. Pt. states that she will probably not take her 9pm meds because it doesn't help her anyways as per pt. Pt. also states that she does not feel well at this time, offered her pain medication if she needed it, and she refused at this time. Otherwise, pt. stable and safety in check w/ call light placed within reach, pt. educated on when and how to use call light system, bed set at lowest position, will continue to monitor pt.
--- NOTE | 2019-09-26 02:55 | NUR ---
Pt. refused night meds and is requesting for IVP version of sheila, pt. states that PO meds don't really help her. Will continue to monitor pt. and endorse to next shift RN.
[2019-09-26 05:44] VITALS: BP 156/99
--- NOTE | 2019-09-26 06:53 | NUR ---
Pt. residual checked at this time, < 5mL found. Feeding has been changed at thi time, still set at 50 cc/hr, pt. tolerating well. Pt. had an episode of vomitting last night, did not call anyone to asssit, tube feeding was disconnected and IV d/c. Rechecked IV site, patent, flushing, and reinforced dressing. Otherwise, pt. was able to take medications PO without issue as per pt. request. Will continue to monitor and endorse to next shift.
[2019-09-26 07:05] LABS: BILIRUBIN TOTAL 0.12 mg/dL (0.20-1.00); CALCIUM 8.2 mg/dL (8.5-10.1); CARBON DIOXIDE 24.3 mmol/L (21-32); CREATININE SERUM 1.6 mg/dL (0.6-1.0); POTASSIUM SERUM 4.6 mmol/L (3.5-5.1); TOTAL PROTEIN, SERUM 6.3 g/dL (6.4-8.2)
[2019-09-26 07:18] LABS: ALBUMIN 1.9 g/dL (3.4-5.0)
--- NOTE | 2019-09-26 07:30 | NUR ---
RECEIVED PT IN BED, SLEEPING THIS TIME. AROUSABLE BUT VERY DROWSY THIS TIME. PT RECEIVED NORCO AND XANAX AT 0630AM. SAFTEY PRECAUTIONS ARE IN PLACE. WILL MONITOR.
[2019-09-26 07:56] VITALS: BP 90/51
[2019-09-26 08:30] LABS: PLATELET COUNT 438 x10^3mcL (130-400); RED CELL DISTRIBUTION WIDTH 21.5 % (11.5-14.5)
--- NOTE | 2019-09-26 10:00 | NUR ---
PT IS SLEEPING STILL, AROUSABLE BUT VERY DROWSY, V/S STABLE.
--- NOTE | 2019-09-26 11:00 | NUR ---
GASTRIC RESIDUAL CHECKED, 3L NOTED. TOLERATING WELL. INCREASE FEEDING RATE TO 60ML/HR. WILL MONITOR. STABLE.
--- NOTE | 2019-09-26 12:00 | NUR ---
PT IS AWAKE NOW, ORIENTED X2, FORGETFUL, STILL SLIGHTLY DROWSY. ASKED FOR BED NATION FOR VOID, ASSISTED PT. STABLE. V/S STABLE. DENIES ANY PAIN THIS TIME. PT VOIDING IN BEDPAN SOMETIMES, WAS INCONTINENT IN AM. PER REPORT PT IS INCONTINENT AT TIME.
[2019-09-26 12:06] LABS: BAND NEUTROPHIL 3 % (0-10); BASOPHIL 0 % (0-2); MONOCYTE 4 % (0-7); SEGMENTED NEUTROPHILS 86 % (37-75)
[2019-09-26 12:07] LABS: PLATELET MORPHOLOGY PLATELETS INCREASED
[2019-09-26 12:08] LABS: rbc morphology (normal/abnorm) ABNORMAL (NORMAL); target cell (codocyte) 1+
[2019-09-26 12:12] VITALS: BP 98/63
--- NOTE | 2019-09-26 15:00 | NUR ---
GASTRIC RESIDUAL CHECKED, 4ML NOTED, TOLERATING WELL. CONTINUING RATE 60ML/HR. WILL MONITOR. PT IS STABLE. RESTING IN BED COMFORTABLY.
[2019-09-26 16:11] VITALS: BP 141/85
--- NOTE | 2019-09-26 19:05 | NUR ---
PT RESTING IN BED COMFORTABLY, DENIES ANY PAIN. STABLE. GAVE REPORT TO DEEP TISSUE MASSAGE THERAPIST NURSE.
--- NOTE | 2019-09-26 19:37 | NUR ---
RECEIVED PATIENT IN BED AWAKE, ORIENTED X2 WITH PERIOD OF CONFUSION. NO ACUTE SIGN OF DISTRESS NOTED. BREATHING EASY AND NONLABOR SATTING AT 98% RA. ABDOMEN SOFT AND NONTENDER WITH GTUBE FEEDING JEVITY AT 60ML/HR WITH NO RESIDUAL NOTED. IV TO RFA INTACT AND INFUSING WELL. WILL CONTINUE TO MONITOR. CALL LIGHT WITHIN REACH. BED TO LOWEST POSITION.
[2019-09-26 20:21] VITALS: BP 126/75
--- NOTE | 2019-09-26 23:51 | NUR ---
APPEAR TO BE SLEEPING BREATHING EASY AND NONLABOR. WILL CONTINUE TO MONITOR.
--- NOTE | 2019-09-27 05:05 | NUR ---
SLEPT FAIRLY, CHECKED AT INTERVALS FOR NEEDS AND SAFEY. NO SIGNIFICANT CHANGES IN CONDITION NOTED. ALL NEEDS ATTENDED.
[2019-09-27 05:50] VITALS: BP 128/82; BP 150/95
--- NOTE | 2019-09-27 07:30 | NUR ---
PT IS AAOX2-3 CONFUSED AT TIMES. RESP EVEN AND UNLABORED. LUNG SOUNDS CTA, ON R/A. NO COUGH OR SOB NOTED. ASPIRATIONS PRECAUTIONS IN PLACE. NORMAL S1S2 NOTED. ABDOMEN SOFT, FLAT, NONTENDER. BOWEL SOUNDS ACTIVE X 4 QUADS. DENIES N/V. PT HAS PEG TUBE IN PLACE TO LUQ WITH JEVITY RUNNING AT 60ML/HOUR. PATENT, WITH NO RESIDUAL NOTED. HOB ELEVATED AT 30 DEGREES. IV CATH TO RFA PATENT, SITE WNL. PT DENIES PAIN AT THIS TIME. NO DISTRESS NOTED. CALL LIGHT WITHIN REACH. BED IN LOWEST POSITION. BED ALARM ON.
[2019-09-27 08:56] VITALS: BP 138/84
--- NOTE | 2019-09-27 09:23 | NUR ---
SCHEDULED MED GIVEN CRUSHED VIA PEG TUBE WITH 30CC FLUSH BEFORE AND AFTER ADMINISTRATION. NO RESIDUAL NOTED. B/P 138/84, HR 98. PT GROGGY, FATIGUED. RESP EVEN AND UNLABORED. HOB AT 30 DEGREES. ASPIRATIONS OBSERVED. CALL LIGHT WITHIN REACH. BED ALARM ON.
--- NOTE | 2019-09-27 09:30 | NUR ---
SCHEDULED MED GIVEN AND TOLERATED WELL. B/P 138/84, HR 98. PT GROGGY, FATIGUED. RESP EVEN AND UNLABORED. HOB AT 30 DEGREES. ASPIRATIONS OBSERVED. CALL LIGHT WITHIN REACH. BED ALARM ON.
--- NOTE | 2019-09-27 11:48 | NUR ---
CALLED AND SPOKE TO AND ORDER RECEIVED FOR [facility] FOR P.T.
--- NOTE | 2019-09-27 11:56 | NUR ---
RECEIVED ORDER FROM DR. BARRERA, ADD 30ML FLUSH AT Q 6 HOURS FOR JEVITY DIETARY ORDER. ORDER NOTED AND CARRIED OUT. PT MADE AWARE.
[2019-09-27 12:19] VITALS: BP 133/83
--- NOTE | 2019-09-27 12:28 | NUR ---
Follow-up Nutrition Assessment: 208/A VICKY PAREDES FU HR Dx: Syncope PMHx: anorexia psych d/o dehydration malnourishment, HTN, Periperal Neuropathy, Vertigo, Iron Deficiency Anemia, Chronic Renal Failure, Hypothyroidism Labs: (09/26) BUN 19H, CREAT 1.6H, ALB 2.0L, CHOL 209H, MG 2.6H, HGB 8.7L Meds: Carafate, cephulac, dulcolax, Levaquin, ferrous sulfate, megace, morphine, phenegran, Remeron, theragran, zofran Diet: TF (PEG) Jevity 1.2 @ 20 ml/hr, goal 60 ml/hr, advance 10 ml Q4H PO Intake: NPO Weights: (09/22) 50.3 kg, (09/27) 48.5 kg I/Os: (09/26) 1318/1 (1317) Skin: mid forehead wound closed with sutures and TARIK Chi: 16 Edema: none GI: J-tube to LLQ Last BM: 09/27 RD Note (09/27): Patient was sleeping. Jevity 1.2 is running @ 60 ml/hr, FWF 20 ml Q6H. Per RN Delaney, pt is tolerating tube feedings without any residuals. Patient has been losing weight. Estimated Nutritional Needs Based on current body weight (50.3 kg) Energy: 3702-0746 kcal/day (35-40 kcal/kg for malnutrition) Protein: 60-70 g/day (1.2-1.4 g/kg for malnutrition) Fluid: 8026-1946 mL/day (1 mL/kcal) Nutrition Diagnosis: 1.Malnutrition related to chronic poor PO 2/2 anorexia as evidenced by BMI 17.4 kg/m2 (ongoing) Intervention: 1. Recommend continuing tube feedings Jevity 1.2 @ 60 ml/hr. This will provide 1730 kcal and 80g protein. This will meet >95% calorie and 100% protein needs if the patient. Monitor/Evaluate: Goal: Have pt meet at least 75% of estimated needs Monitor: TF intake/ tolerance, Labs, GI function F/U in 2-3 days as high risk /-5
--- NOTE | 2019-09-27 12:47 | NUR ---
XANEX GIVEN FOR FEELINGS OF ANXIOUSNESS. NORCO GIVEN FOR BACK AND NECK PAIN 04/04. SCHEDULED MEDS AND PRN MEDS CRUSHED AND GIVEN WITH APPLE SAUCE. 45ML RESIDUAL NOTED. HOB ELEVATED AT 40 DEGREES. PEG TUBE FLUSED WITH 30ML WATER. CALL LIGHT WITHIN REACH. BED ALARM ON. CALL LIGHT WITHIN REACH.
--- NOTE | 2019-09-27 12:47 | NUR ---
XANEX GIVEN FOR FEELINGS OF ANXIOUSNESS. NORCO GIVEN FOR BACK AND NECK PAIN 04/04. SCHEDULED MEDS AND PRN MEDS CRUSHED AND GIVEN WITH APPLE SAUCE. G-TUBE CHECKED FOR RESIDUAL, 50 ML NOTED. HOB ELEVATED AT 40 DEGREES. PEG TUBE FLUSED WITH 30ML WATER. CALL LIGHT WITHIN REACH. BED ALARM ON. CALL LIGHT WITHIN REACH.
--- NOTE | 2019-09-27 13:54 | NUR ---
SCHEDULED MED GIVEN AND TOLERATED WELL. PT DENIES PAIN AT THIS TIME. RESP EVEN AND UNLABORED. HOB ELEVATED 50 DEGREES. CALL LIGHT WITHIN REACH. BED IN LOWEST POSITION.
--- NOTE | 2019-09-27 16:12 | NUR ---
RECEIVED ORDER FROM DR. BARRERA, PLEASE ADD PARAMETER OF Q 4 HOURS TO XANEX 0.5MG PRN. ORDER NOTED AND CARRIED OUT. PT MADE AWARE. REMOVED SUTURES FROM PT'S FOREHEAD AND TOP OF NOSE. AREA CLEANSED WITH N/S, PATTED DRY, SUTURES REMOVED, AREAS COVERED WITH CDI BANDAID. NO INFECTION NOTED AT SITES. SKIN WELL APPROXIMATED. PT TOLERATED PROCEDURE WELL. BED IN LOWEST POSITION. HOB ELEVATED 40 DEGREES. BED ALARM ON.
--- NOTE | 2019-09-27 16:16 | NUR ---
RECEIVED A CALL FROM GISELLE(SOCIAL SERVICE) AND SHE SAID PT IS ACCEPTED AT [facility]. CALLED AND SPOKE TO AND MADE HIM AWARE OF ABOVE. KAI LOWERY ASSIGNED TO THIS PT MADE AWARE OF ABOVE.
[2019-09-27 16:34] VITALS: BP 94/55
[2019-09-27 16:49] VITALS: BP 94/55
--- NOTE | 2019-09-27 17:08 | NUR ---
NORCO GIVEN FOR BACK AND NECK PAIN 04/04. XANEX GIVEN FOR ANXIETY. SCHEDULED MEDS GIVEN AND TOLERATED WELL. RESP EVEN AND UNLABORED. PT MADE AWARE SHE WILL TRANSFER TO [facility] AT [phone]. REPORT AT [facility] GIVEN TO BEVERLEY ANGEL. PT TO BE FOLLOWED BY DR. BARRERA, ROOM 22. ([address] [place] [address]. PHONE: [phone]) DISCHARGE ORDERS REVIEWED WITH PT. ALL QUESTIONS ANSWERED. WILL CONTINUE TO MONITOR PT.
--- NOTE | 2019-09-27 17:57 | NUR ---
PT TRANSFERRED TO [facility] ON A GURNEY VIA [facility], VS: T 97.5, HR 92, RR 17, BP 96/58 (69), OX SAT 95%. PT DENIES PAIN AT TIME OF DISCHARGE. DISCHARGE INSTRUCTIONS GIVEN TO [facility] STAFF AND COPY OF DISCHARGE ORDERS GIVEN TO PT.
== END 2019-09-27 18:00 | DRG 682 ==
LOC: ED 14:05 → MU 17:02 → DU 17:02 → MU 09-25 15:20
PROVIDERS: Emergency Medicine; Internal Medicine; ADMIT Internal Medicine
PROC: 0HQ1XZZ Repair Face Skin, External Approach (ICD-10-PCS; principal; 2019-09-22)
DX: N17.0 Acute kidney failure with tubular necrosis (principal); E43 Unspecified severe protein-calorie malnutrition; J18.9 Pneumonia, unspecified organism; R64 Cachexia; Z68.1 Body mass index [BMI] 19.9 or less, adult; G90.9 Disorder of the autonomic nervous system, unspecified; R55 Syncope and collapse; E86.0 Dehydration; R63.0 Anorexia; S01.81XA Laceration without foreign body of other part of head, initial encounter; S01.21XA Laceration without foreign body of nose, initial encounter; N18.3 Chronic kidney disease, stage 3 (moderate); D63.8 Anemia in other chronic diseases classified elsewhere; F41.9 Anxiety disorder, unspecified; Z93.4 Other artificial openings of gastrointestinal tract status; Z79.1 Long term (current) use of non-steroidal anti-inflammatories (NSAID); W18.39XA Other fall on same level, initial encounter; Y92.002 Bathroom of unspecified non-institutional (private) residence as the place of occurrence of the external cause
CPT/HCPCS: 82962; 83880; 86431; 90715; 97116-GP; 97530-GP; G0378; G0480; J0885-EC; J1956; J2001; J2543; J2550; J3490; J7030; J7042; J7070; J8597; Q0092

== ENCOUNTER 2019-10-04 02:01 | Emergency (ER) | payer OTHER ==
[~2019-10-04] VITALS: Ht 170.2 cm; Wt 47.6 kg
[~2019-10-04 02:01] MED LIST changes: -DULCOLAX5 M1 GT; +DULCOLAX5 M1 PO; -LAC30L GT; +LAC30L PO; +LORAZEPAM1 MG PO; +LORAZEPAM2 MG PO; -PROZ10 GT; +PROZ10 PO; -REMERON30 MG GT; +REMERON30 MG PO; +RISPERIDONE3 M2 PO; -ULTRAM50 MG GT; +ULTRAM50 MG PO; +XANAX0.25 MG PO; -ZYP10 GT; +ZYP10 PO
[2019-10-04 02:12] VITALS: Ht 170.2 cm; Wt 47.6 kg
[2019-10-04 09:47] VITALS: BP 142/64
== END 2019-10-04 09:47 | disposition home or self-care (01) ==
LOC: ED 02:01
DX: Z46.59 Encounter for fitting and adjustment of other gastrointestinal appliance and device (principal)
CPT/HCPCS: Q0092; Q9967

== ENCOUNTER 2019-11-20 16:31 | Inpatient (IN) | payer BC, OTHER ==
[~2019-11-20] VITALS: Ht 170.2 cm; Wt 45.4 kg
[~2019-11-20 16:31] MED LIST changes: +DULCOLAX5 M1 GT; -DULCOLAX5 M1 PO; +LAC30L GT; -LAC30L PO; +PROZ10 GT; -PROZ10 PO; +REMERON30 MG GT; -REMERON30 MG PO; +RISPERIDONE3 M2 GT; -RISPERIDONE3 M2 PO; +ULTRAM50 MG GT; -ULTRAM50 MG PO; +ZYP10 GT; -ZYP10 PO
[2019-11-20 16:37] VITALS: Ht 170.2 cm; Wt 45.4 kg
[2019-11-20 17:42] LABS: PLATELET COUNT 384 x10^3mcL (130-400)
[2019-11-20 17:43] LABS: RED CELL DISTRIBUTION WIDTH 21.9 % (11.5-14.5)
[2019-11-20 17:52] LABS: CALCIUM 8.2 mg/dL (8.5-10.1); CARBON DIOXIDE 26.1 mmol/L (21-32); POTASSIUM SERUM 5.4 mmol/L (3.5-5.1)
[2019-11-20 17:57] LABS: ALBUMIN 2.2 g/dL (3.4-5.0); BILIRUBIN TOTAL 0.1 mg/dL (0.20-1.00); MAGNESIUM 2.5 mg/dL (1.8-2.4); TOTAL PROTEIN, SERUM 6.2 g/dL (6.4-8.2)
[2019-11-20 18:04] LABS: FREE T4 1.01 ng/dL (0.76-1.46); FREE THYROXINE INDEX 2.3 ug/dL (1.4-4.5); T4(THYROXINE) 6.7 ug/dL (4.7-13.3)
[2019-11-20 18:07] LABS: T3 TOTAL 0.69 ng/mL
[2019-11-20 18:20] LABS: BAND NEUTROPHIL 0 % (0-10); BASOPHIL 0 % (0-2); MONOCYTE 3 % (0-7); SEGMENTED NEUTROPHILS 61 % (37-75)
[2019-11-20 18:23] LABS: rbc morphology (normal/abnorm) ABNORMAL (NORMAL)
[2019-11-20 18:24] LABS: PLATELET MORPHOLOGY PLATELETS INCREASED
[2019-11-20 20:44] LABS: microscopic required? YES; urine erythrocyte NEGATIVE (NEGATIVE)
[2019-11-20 21:06] VITALS: BP 99/66
[2019-11-21 05:25] VITALS: BP 110/71
[2019-11-21 06:37] LABS: CREATININE SERUM 1.9 mg/dL (0.6-1.0)
[2019-11-21 07:30] LABS: PLATELET COUNT 334 x10^3mcL (130-400)
[2019-11-21 07:46] LABS: RED CELL DISTRIBUTION WIDTH 22.1 % (11.5-14.5)
[2019-11-21 08:34] VITALS: BP 91/52
[2019-11-21 09:17] LABS: BAND NEUTROPHIL 0 % (0-10); BASOPHIL 0 % (0-2); MONOCYTE 8 % (0-7); PLATELET MORPHOLOGY PLATELETS INCREASED; SEGMENTED NEUTROPHILS 63 % (37-75); rbc morphology (normal/abnorm) ABNORMAL (NORMAL)
[2019-11-21 12:28] VITALS: BP 107/70
[2019-11-21 16:43] VITALS: BP 101/63
[2019-11-21 18:20] LABS: IRON 21 ug/dL (50-170); TOTAL IRON BINDING CAPACITY 174 ug/dL (250-450)
[2019-11-21 18:36] LABS: C REACTIVE PROTEIN < 0.2 mg/dL (<=0.9)
[2019-11-21 19:32] VITALS: BP 119/79
[2019-11-22] VITALS (7 sets, daily range): BP systolic 77–119; BP diastolic 47–79
[2019-11-22 06:04] LABS: PLATELET COUNT 328 x10^3mcL (130-400)
[2019-11-22 06:42] LABS: RED CELL DISTRIBUTION WIDTH 21.2 % (11.5-14.5)
[2019-11-22 07:03] LABS: CALCIUM 7.6 mg/dL (8.5-10.1); CARBON DIOXIDE 23.7 mmol/L (21-32); POTASSIUM SERUM 4.3 mmol/L (3.5-5.1)
[2019-11-22 07:22] LABS: BAND NEUTROPHIL 1 % (0-10); BASOPHIL 0 % (0-2); MONOCYTE 8 % (0-7); SEGMENTED NEUTROPHILS 50 % (37-75)
[2019-11-22 07:25] LABS: ovalocyte/elliptocyte 1+; rbc morphology (normal/abnorm) ABNORMAL (NORMAL); schistocyte (helmet cell) 1+; target cell (codocyte) 1+
[2019-11-23 04:34] VITALS: BP 120/75
[2019-11-23 08:08] VITALS: BP 97/58
[2019-11-23 12:12] VITALS: BP 113/68
[2019-11-23 13:39] VITALS: BP 113/68
[2019-11-23 16:43] VITALS: BP 104/63
[2019-11-23 20:45] VITALS: BP 128/79
[2019-11-24 05:35] VITALS: BP 136/87
[2019-11-24 06:29] LABS: PLATELET COUNT 340 x10^3mcL (130-400)
[2019-11-24 06:43] LABS: CALCIUM 8.7 mg/dL (8.5-10.1); CARBON DIOXIDE 27.5 mmol/L (21-32); POTASSIUM SERUM 4.5 mmol/L (3.5-5.1)
[2019-11-24 07:43] VITALS: BP 134/84
[2019-11-24 08:49] LABS: RED CELL DISTRIBUTION WIDTH 21.5 % (11.5-14.5)
[2019-11-24 12:15] VITALS: BP 104/66
[2019-11-24 17:55] VITALS: BP 104/72
[2019-11-24 20:52] VITALS: BP 119/81
[2019-11-25] VITALS (7 sets, daily range): BP systolic 89–194; BP diastolic 56–100
[2019-11-26 04:46] VITALS: BP 127/86
[2019-11-26 06:39] LABS: PLATELET COUNT 388 x10^3mcL (130-400)
[2019-11-26 06:50] LABS: RED CELL DISTRIBUTION WIDTH 22.2 % (11.5-14.5)
[2019-11-26 06:57] LABS: CALCIUM 8.4 mg/dL (8.5-10.1); CARBON DIOXIDE 24.6 mmol/L (21-32); CREATININE SERUM 2.2 mg/dL (0.6-1.0); POTASSIUM SERUM 4.6 mmol/L (3.5-5.1)
[2019-11-26 08:21] VITALS: BP 101/59
[2019-11-26 12:17] LABS: BAND NEUTROPHIL 0 % (0-10); BASOPHIL 0 % (0-2); MONOCYTE 5 % (0-7); PLATELET MORPHOLOGY PLATELETS INCREASED; SEGMENTED NEUTROPHILS 69 % (37-75)
[2019-11-26 12:18] LABS: rbc morphology (normal/abnorm) ABNORMAL (NORMAL)
[2019-11-26 12:43] VITALS: BP 113/74
[2019-11-26 17:48] VITALS: BP 109/72
[2019-11-26 20:46] VITALS: BP 112/67
[2019-11-27 04:50] VITALS: BP 126/83
[2019-11-27 09:14] VITALS: BP 116/72
[2019-11-27 12:19] VITALS: BP 103/66
[2019-11-27 15:58] VITALS: BP 103/66
[2019-11-27] MEDS ORDERED: SENOKOT8.6 MG GT (16:03)
[2019-11-27] MEDS ORDERED: ACETAMINOPHEN650 M6 GT (16:06)
== END 2019-11-27 17:54 | DRG 682 ==
LOC: ED 16:31 → MU 19:19
PROVIDERS: Emergency Medicine; Internal Medicine; Internal Medicine Gastroenterology; ADMIT Internal Medicine
DX: N17.9 Acute kidney failure, unspecified (principal); J18.9 Pneumonia, unspecified organism; E43 Unspecified severe protein-calorie malnutrition; G93.41 Metabolic encephalopathy; N39.0 Urinary tract infection, site not specified; K92.2 Gastrointestinal hemorrhage, unspecified; Z68.1 Body mass index [BMI] 19.9 or less, adult; E86.0 Dehydration; R63.0 Anorexia; R62.51 Failure to thrive (child); R13.10 Dysphagia, unspecified; K08.89 Other specified disorders of teeth and supporting structures; E87.5 Hyperkalemia; N18.9 Chronic kidney disease, unspecified; F41.9 Anxiety disorder, unspecified; F32.9 Major depressive disorder, single episode, unspecified; G62.9 Polyneuropathy, unspecified; Z93.1 Gastrostomy status; Z79.899 Other long term (current) drug therapy
CPT/HCPCS: 84439; 87046; 87046-59; 97116-GP; 97530-GP; G0378; J2270; J2405; J2543; J2550; J3010; J7030; J7042; J7050; Q0092